=== PATIENT | male | born 1970 | race African-American/Black ===

== ENCOUNTER 2020-03-20 10:26 | Inpatient (IN) | payer OTHER ==
--- NOTE | 2020-03-20 12:48 | BHS.RME ---
Substance Use & Tx History - Substance Use History Alcohol Substance amount: 2- 6 packs, 1/2 pint Frequency of use: Daily Substance route: Oral Date of Last Use: 03/20/20 Heroin Substance amount: 4 bags Frequency of use: Daily Substance route: Inhalation (ex: sniffing or snorting) Date of Last Use: 03/20/20 Cocaine-Crack Substance amount: $10 Frequency of use: Daily Substance route: Smoking - Last Treatment Date of last treatment: 10/29/2017 Where was last treatment: Detox Physical/Psych/Mental Status - Behavior General Behavior: Increased activity (restlessness, agitation) Eye Contact: Normal Other Behaviors: Mannerisms - Cooperativeness Cooperativeness: Cooperative - Thinking Thought Processes: Tight, Logical Thought content: Future oriented - Physical Health Problems Is patient presently having any pain?: Yes (generalized) Does patient presently have any injuries (include location): No Does patient currently have a fever: No COWS - Scale Resting Pulse: 0= [place] 80 or Below Sweatin= Chills/Flushing Restless Observation: 1= Difficult to Sit Still Pupil Size: 1= Pupils >than Normal Bone or Joint Aches: 2= Severe Diffuse Aches Runny Nose/ Eye Tearin= Nasal Congestion GI Upset > 30mins: 2= Nausea/Diarrhea Tremor Observation: 2= Slight Tremor Visible Yawning Observation: 1= 1-2x During Session Anxiety or Irritability: 1=Feels Anxious/Irritable Goose Flesh Skin: 3=Piloerection COWS Score: 15 CIWA Nausea/Vomitin Muscle Tremors: 2 Anxiety: 2 Agitation: 2 Paroxysmal Sweats: 2 Orientation: 0-Oriented Tacttile Disturbances: 2-Mild Itch/Numbness/Burn Auditory Disturbances: 0-None Visual Disturbances: 0-None Headache: 2-Mild CIWA-Ar Total Score: 14
[2020-03-20 13:19] VITALS: BMI 41.3
--- NOTE | 2020-03-20 13:46 | HP ---
COWS - Scale Resting Pulse: 0= [place] 80 or Below Sweatin= Chills/Flushing Restless Observation: 1= Difficult to Sit Still Pupil Size: 1= Pupils >than Normal Bone or Joint Aches: 2= Severe Diffuse Aches Runny Nose/ Eye Tearin= Nasal Congestion GI Upset > 30mins: 2= Nausea/Diarrhea Tremor Observation: 2= Slight Tremor Visible Yawning Observation: 1= 1-2x During Session Anxiety or Irritability: 1=Feels Anxious/Irritable Goose Flesh Skin: 3=Piloerection COWS Score: 15 CIWA Score Nausea/Vomitin Muscle Tremors: 2 Anxiety: 2 Agitation: 2 Paroxysmal Sweats: 2 Orientation: 0-Oriented Tacttile Disturbances: 2-Mild Itch/Numbness/Burn Auditory Disturbances: 0-None Visual Disturbances: 0-None Headache: 2-Mild CIWA-Ar Total Score: 14 - Admission Criteria OASAS Guidelines: Admission for Medically Managed Detox: Requires at least one of the followin. CIWA greater than 12 2. Seizures within the past 24 hours 3. Delirium tremens within the past 24 hours 4. Hallucinations within the past 24 hours 5. Acute intervention needed for co occurring medical disorder 6. Acute intervention needed for co occurring psychiatric disorder 7. Severe withdrawal that cannot be handled at a lower level of care (continued vomiting, continued diarrhea, abnormal vital signs) requiring intravenous medication and/or fluids 8. Patient presents the following: CIWA greater than 12 Admission Criteria Met: Admission criteria met Admitting History and Physical - Smoking History Smoking history: Current every day smoker Have you smoked in the past 12 months: Yes Aproximately how many cigarettes per day: 3 - Alcohol/Substance Use Hx Alcohol Use: Yes Admission ROS S - HPI Chief Complaint: "I am here today because this is the beginning for me to stop using alcohol, cocaine and heroin. I need to get detox and treat my mental health, this is the beginning." Allergies/Adverse Reactions: Allergies Allergy/AdvReac Type Severity Reaction Status Date / Time Fish Containing Products Allergy Intermediate Swelling Verified 03/20/20 13:15 tomato [Tomato] Allergy Intermediate Itching Verified 03/20/20 13:15 tomatoes Allergy Intermediate Itching Uncoded 03/20/20 13:15 History of Present Illness: Patient is a 49 years old man who presents for alcohol and heroine detox. His last treatment was at [facility] 3 months ago, his last treated was at [facility] in 2018. Exam Limitations: No Limitations - Ebola screening Have you traveled outside of the country in the last 21 days: No Have you had contact with anyone from an Ebola affected area: No Have you been sick,other than usual withdrawal symptoms: No Do you have a fever: No - Review of Systems Constitutional: Chills, Weight Stable EENT: reports: Nose Congestion Respiratory: reports: No Symptoms reported Cardiac: reports: No Symptoms Reported GI: reports: Nausea, Abdominal cramping Musculoskeletal: reports: Back Pain (lower), Muscle Pain, Muscle Weakness Integumentary: reports: Pruritus, Sweating Neuro: reports: Headache, Numbness, Tremors Endocrine: reports: No Symptoms Reported Hematology: reports: No Symptoms Reported Psychiatric: reports: Anxious Other Systems: Reviewed and Negative Patient History - Patient Medical History Hx Anemia: No Hx Asthma: No Hx Chronic Obstructive Pulmonary Disease (COPD): No Hx Cancer: No Hx Cardiac Disorders: Yes (A-Fib) Hx Congestive Heart Failure: No Hx Hypertension: Yes Hx Hypercholesterolemia: No Hx Pacemaker: No HX Cerebrovascular Accident: No Hx Seizures: No Hx Dementia: No Hx Diabetes: Yes Hx Gastrointestinal Disorders: No Hx Liver Disease: No Hx Genitourinary Disorders: No Hx Sexually Transmitted Disorders: No Hx Renal Disease (ESRD): No Hx Thyroid Disease: No Hx Human Immunodeficiency Virus (HIV): No Hx Hepatitis C: No Hx Depression: No Hx Suicide Attempt: No Hx Bipolar Disorder: Yes Hx Schizophrenia: No - Patient Surgical History Past Surgical History: Yes Hx Neurologic Surgery: No Hx Cataract Extraction: No Hx Cardiac Surgery: Yes (Cardiac ablation for A-fib in 2018) Hx Lung Surgery: No Hx Breast Surgery: No Hx Breast Biopsy: No Hx Abdominal Surgery: No Hx Appendectomy: No Hx Cholecystectomy: No Hx Genitourinary Surgery: No Hx Section: No Hx Orthopedic Surgery: No Anesthesia Reaction: No - PPD History Previous Implant?: Yes Documented Results: Negative w/proof Implanted On Prior R Admission?: Yes Date: 11/29/12 Results: 0MM PPD to be Administered?: Yes - Smoking Cessation Smoking history: Current every day smoker Have you smoked in the past 12 months: Yes Aproximately how many cigarettes per day: 3 Hx Chewing Tobacco Use: No Initiated information on smoking cessation: Yes 'Breaking Loose' booklet given: 03/20/20 Admission Physical Exam [facility] - Vital Signs Vital Signs: Vital Signs - 24 hr 03/20/20 13:17 Temperature 97.4 F L Pulse Rate 82 Respiratory 18 Rate Blood Pressure 147/97 - Physical General Appearance: Yes: No Apparent Distress, Disheveled, Anxious HEENTM: Yes: Hearing grossly Normal, Normocephalic, Normal Voice Respiratory: Yes: Chest Non-Tender, Lungs Clear, Normal Breath Sounds, No Respiratory Distress, No Accessory Muscle Use Breast: Yes: Breast Exam Deferred Cardiology: Yes: Regular Rhythm, Regular Rate Abdominal: Yes: Normal Bowel Sounds, Non Tender, Soft Genitourinary: Yes: Within Normal Limits Back: Yes: Normal Inspection Extremities: Yes: Non-Tender, Tremors, Other (fungal feet) Neurological: Yes: 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, Fully Oriented, Alert, Normal Mood/Affect, Normal Response Integumentary: Yes: Dry Lymphatic: Yes: Within Normal Limits - Diagnostic (1) Cocaine dependence Current Visit: Yes Status: Active (2) Essential hypertension Current Visit: Yes Status: Active (3) Alcohol dependence with uncomplicated withdrawal Current Visit: Yes Status: Acute (4) Nicotine dependence Current Visit: Yes Status: Acute Qualifiers: Nicotine product type: cigarettes Substance use status: uncomplicated Qualified Code(s): F17.210 - Nicotine dependence, cigarettes, uncomplicated (5) Opioid dependence with withdrawal Current Visit: Yes Status: Acute Cleared for Admission [facility] - Detox or Rehab [facility] Level of Care: Medically Managed Detox Regimen/Protocol: Methadone/Librium Claeared for Rehab Admission: No Breathalyzer - Breathalyzer Breathalyzer: 0 Urine Drug Screen - Test Device Lot number: [id number] Expiration date: 09/23/76 - Control Is test valid?: Yes - Results Urine drug screen results: MARTINA-Cocaine, FEN-Fentanyl, MOP-Opiates Inpatient Rehab Admission - Rehab Decision to Admit Inpatient rehab admission?: No
[2020-03-20] MEDS ORDERED: MAGNESIUM CITRATE 300 ML BOTTLE PO PRN (13:53)
[2020-03-20] MEDS ORDERED: MENTHOL/PHENOL 1 EACH UD MM PRN (13:53)
[2020-03-20] MEDS ORDERED: IBUPROFEN 400 MG TABLET (FP) PO PRN (13:53)
[2020-03-20] MEDS ORDERED: MAGNESIUM HYDROX 2400MG/30ML ORAL SUSPENSION 30 ML CUP PO PRN (13:53)
[2020-03-20] MEDS ORDERED: chlordiazePOXIDE HCL 25 MG CAPSULE PO PRN (13:53)
[2020-03-20] MEDS ORDERED: METHADONE HCL 10 MG TABLET (FOR DETOX USE ONLY) PO ONE (13:53)
[2020-03-20] MEDS ORDERED: MAG HYDROX/AL HYDROX/SIMETH 30 ML UNIT-DOSE CUP PO PRN (13:53)
[2020-03-20] MEDS ORDERED: BISMUTH SUBSALICYLATE 524 MG/30 ML UD PO PRN (13:53)
[2020-03-20] MEDS ORDERED: NICOTINE POLACRILEX 2 MG GUM BUC PRN (13:53)
[2020-03-20] MEDS ORDERED: ACETAMINOPHEN 325 MG TABLET (FP) PO PRN ×2 (13:53)
[2020-03-20] MEDS ORDERED: METHOCARBAMOL 500 MG TABLET PO PRN (13:53)
[2020-03-20] MEDS: cloNIDine HCL 0.1 MG TABLET PO PRN (14:42)
[2020-03-20] MEDS: chlordiazePOXIDE HCL 25 MG CAPSULE PO SCH ×2 (17:41→22:09)
[2020-03-20] MEDS ORDERED: APIXABAN 5 MG TABLET ONE (21:26)
[2020-03-20] MEDS ORDERED: chlordiazePOXIDE HCL 25 MG CAPSULE ONE (21:26)
[2020-03-20] MEDS: APIXABAN 5 MG TABLET PO SCH (22:09)
[2020-03-20] MEDS: THIAMINE HCL 100 MG TABLET (FP) PO SCH (22:09)
[2020-03-20] MEDS: MELATONIN 5 MG TABLETS PO SCH (22:09)
[2020-03-20] MEDS: TOLNAFTATE 1% CREAM 15 GM TUBE TP SCH (22:09)
[2020-03-21] MEDS: chlordiazePOXIDE HCL 25 MG CAPSULE PO SCH ×4 (05:42→22:27)
--- NOTE | 2020-03-21 09:54 | CONSULT ---
[facility] Psychiatric Consult - Data Date of interview: 03/21/20 Admission source: Self-referred Identifying data: Mr March is a 49 years old single Black male, unemployed receiving SSI, domiciled living in supportive housing seeking detox treatment for alcohol, opioid and cocaine Substance Abuse History: Reports history of alcohol, heroin and cocaine use. Refer to addiction counselor's summary for further information Medical History: Significant for hypertension, type 2 diabetes mellitus and history of ablation for atrial fibrillation in 2018. Smokes 3 cigarettes daily Psychiatric History: Patient is known for 4 previous admissions to this facility. He reports that his first psychiatric contact occured years ago while in a [facility] residential program. He said that he was diagnosed with Schi zoaffective Disorder, bipolar type and started on psychotropic medications. Told proposal writer that due to frequent incarcerations and chronic homelessness, most of his psychiatric treatment has been provided while incarcerated. Reports that he received [facility] care at [facility], [facility] and [facility]. Reports that currently he is prescribed Abilify 20 mg/day, Depakote 500 mg/bid and Remreron 30 mg/hs by his primary care physician. Reports one previous psychiatric hospitalization at [facility]) but has no idea of the time. Denies previous suicidal attempt. At present, denies experiencing psychotic, manic or depressive symptoms, S/H ideations. However, reports sleeping poorly Physical/Sexual Abuse/Trauma History: Denies history of abuse as a child or DV relationship as an adult Mental Status Exam - Mental Status Exam Alert and Oriented to: Time, Place, Person Cognitive Function: Fair Patient Appearance: Disheveled Mood: Depressed Affect: Appropriate Patient Behavior: Cooperative Speech Pattern: Clear Voice Loudness: Normal Thought Process: Intact, Goal Oriented Hallucinations: Denies Suicidal Ideation: Denies Homicidal Ideation: Denies Insight/Judgement: Poor Sleep: Poorly Appetite: Good Muscle strength/Tone: Normal Gait/Station: Normal Psychiatric Findings - Problem List ([place] 1, 2,3) (1) Schizoaffective disorder, bipolar type Current Visit: Yes Status: Chronic (2) Substance-induced sleep disorder Current Visit: Yes Status: Acute (3) Alcohol dependence with uncomplicated withdrawal Current Visit: Yes Status: Acute (4) Cocaine dependence Current Visit: Yes Status: Active (5) Nicotine dependence Current Visit: Yes Status: Chronic Qualifiers: Nicotine product type: cigarettes Substance use status: uncomplicated Qualified Code(s): F17.210 - Nicotine dependence, cigarettes, uncomplicated (6) Essential hypertension Current Visit: Yes Status: Acute (7) Type 2 diabetes mellitus Current Visit: Yes Status: Chronic (8) Afib Current Visit: Yes Status: Chronic - Initial Treatment Plan Initial Treatment Plan: 1) Continue Abilify 20 mg po daily, Depakote 500 mg po BID and Remeron 30 mg po HS. 2) Continue inpatient detoxification
[2020-03-21] MEDS ORDERED: METHADONE (DETOX) 20 MG, METHADONE (DETOX) 5 MG PO ONE (10:00)
[2020-03-21] MEDS: APIXABAN 5 MG TABLET PO SCH ×2 (10:39→22:27)
[2020-03-21] MEDS: PRENATAL VITAMINS W/ FOLIC ACID TABLET (FP) PO SCH (10:39)
[2020-03-21] MEDS: LISINOPRIL 20 MG TABLET PO SCH (10:40)
[2020-03-21] MEDS: MIRTAZAPINE 30 MG TABLET PO SCH (10:40)
[2020-03-21] MEDS: DIVALPROEX SODIUM 500 MG TABLET E.C. PO SCH ×2 (10:46→22:27)
[2020-03-21] MEDS: TOLNAFTATE 1% CREAM 15 GM TUBE TP SCH ×2 (10:46→22:28)
[2020-03-21 10:56] LABS: HEMATOCRIT 39.6 % (35.4-49); HEMOGLOBIN 13.3 GM/dL (11.7-16.9); MCH 31.5 pg (25.7-33.7); MCHC 33.6 g/dl (32.0-35.9); MEAN CELL VOLUME 93.6 fl (80-96); MEAN PLT VOLUME 9.8 fl (7.5-11.1); PLATELET COUNT 198 K/MM3 (134-434); RBC 4.23 M/mm3 (4.00-5.60); RDW 16.2 % (11.9-15.9); WHITE BLOOD COUNT 6.2 K/mm3 (4.0-10.0)
[2020-03-21 11:07] LABS: ALBUMIN 3.3 g/dl (3.4-5.0); BLOOD UREA NITROGEN 12.9 mg/dL (7-18); CALCIUM 8.4 mg/dL (8.5-10.1)
[2020-03-21 11:10] LABS: BILIRUBIN,TOTAL 0.6 mg/dL (0.2-1); TOT PROT 6.1 g/dl (6.4-8.2)
[2020-03-21] MEDS: ARIPiprazole 10 MG TABLET PO SCH (12:12)
--- NOTE | 2020-03-21 17:04 | PN ---
S CIWA - CIWA Score Nausea/Vomitin-Mild Nausea/No Vomiting Muscle Tremors: 2 Anxiety: 2 Agitation: 2 Paroxysmal Sweats: 3 Orientation: 0-Oriented Tacttile Disturbances: 1-Very Mild Itch/Numbness Auditory Disturbances: 0-None Visual Disturbances: 0-None Headache: 1-Very Mild CIWA-Ar Total Score: 12 BHS COWS - Scale Resting Pulse: 0= [place] 80 or Below Sweatin= Chills/Flushing Restless Observation: 0= Sits Still Pupil Size: 0= Normal to Room Light Bone or Joint Aches: 2= Severe Diffuse Aches Runny Nose/ Eye Tearin= Runny Nose/Eyes GI Upset > 30mins: 2= Nausea/Diarrhea Tremor Observation of Outstretched Hands: 2= Slight Tremor Visible Yawning Observation: 0= None Anxiety or Irritability: 2=Irritable/Anxious Goose Flesh Skin: 0=Smooth Skin COWS Score: 11 S Progress Note (SOAP) Subjective: Anxious, diarrhea Objective: 03/21/20 17:05 Last Vital Signs Temp Pulse Resp BP Pulse Ox 97.8 F 74 18 144/107 H 99 03/21/20 13:01 03/21/20 13:01 03/21/20 13:01 03/21/20 13:01 03/21/20 13:01 Elevated b/p: has htn, on meds Laboratory Tests 03/20/20 03/20/20 03/20/20 13:41 15:20 16:44 WBC RBC Hgb Hct MCV MCH MCHC RDW Plt Count MPV Sodium Potassium Chloride Carbon Dioxide Anion Gap BUN Creatinine Est GFR (CKD-EPI)AfAm Est GFR (CKD-EPI)NonAf POC Glucometer 97 124 Random Glucose Calcium Total Bilirubin AST ALT Alkaline Phosphatase Total Protein Albumin Syphilis Serology COVID-19 (ANTOINE) Not detected HIV Ag/Ab Combo Qual 03/21/20 03/21/20 03/21/20 07:50 07:50 07:50 WBC 6.2 RBC 4.23 Hgb 13.3 Hct 39.6 MCV 93.6 MCH 31.5 MCHC 33.6 RDW 16.2 H Plt Count 198 MPV 9.8 Sodium Potassium Chloride Carbon Dioxide Anion Gap BUN Creatinine Est GFR (CKD-EPI)AfAm Est GFR (CKD-EPI)NonAf POC Glucometer Random Glucose Calcium Total Bilirubin AST ALT Alkaline Phosphatase Total Protein Albumin Syphilis Serology Non-reactive COVID-19 (ANTOINE) HIV Ag/Ab Combo Qual Negative 03/21/20 07:50 WBC RBC Hgb Hct MCV MCH MCHC RDW Plt Count MPV Sodium 142 Potassium 4.0 Chloride 109 H Carbon Dioxide 29 Anion Gap 4 L BUN 12.9 Creatinine 1.0 Est GFR (CKD-EPI)AfAm 101.26 Est GFR (CKD-EPI)NonAf 87.37 POC Glucometer Random Glucose 122 H Calcium 8.4 L Total Bilirubin 0.6 AST 19 ALT 21 Alkaline Phosphatase 73 Total Protein 6.1 L Albumin 3.3 L Syphilis Serology COVID-19 (ANTOINE) HIV Ag/Ab Combo Qual Labs reviewed: mild hyperglycemia noted Assessment: 03/21/20 17:06 Withdrawal sxs Noted with HTN and hyperglycemia Plan: Continue detox Encourage PO water intake HTN: continue antihypertensive, monitor b/p Hyperglycemia: r/t DM, not on meds, monitor FS
--- NOTE | 2020-03-21 21:41 | EKG ---
Test Reason : Blood Pressure : / mmHG Vent. Rate : 079 BPM Atrial Rate : 079 BPM P-R Int : 190 ms QRS Dur : 094 ms QT Int : 386 ms P-R-T Axes : 072 071 049 degrees QTc Int : 442 ms NORMAL SINUS RHYTHM POSSIBLE LEFT ATRIAL ENLARGEMENT BORDERLINE ECG NO PREVIOUS ECGS AVAILABLE Confirmed by ETHAN LEYVA, JENARO ([id number]) on 03/21/2020 9:41:20 PM Referred By: Confirmed By:JENARO LONG MD
[2020-03-21] MEDS: MELATONIN 5 MG TABLETS PO SCH (22:27)
[2020-03-21] MEDS: THIAMINE HCL 100 MG TABLET (FP) PO SCH (22:27)
[2020-03-22] MEDS: chlordiazePOXIDE HCL 25 MG CAPSULE PO SCH ×4 (05:48→22:30)
[2020-03-22] MEDS ORDERED: METHADONE HCL 10 MG TABLET (FOR DETOX USE ONLY) PO ONE (10:00)
[2020-03-22] MEDS: MIRTAZAPINE 30 MG TABLET PO SCH (10:27)
[2020-03-22] MEDS: APIXABAN 5 MG TABLET PO SCH ×2 (10:27→22:29)
[2020-03-22] MEDS: LISINOPRIL 20 MG TABLET PO SCH (10:27)
[2020-03-22] MEDS: PRENATAL VITAMINS W/ FOLIC ACID TABLET (FP) PO SCH (10:28)
[2020-03-22] MEDS: ARIPiprazole 10 MG TABLET PO SCH (10:28)
[2020-03-22] MEDS: DIVALPROEX SODIUM 500 MG TABLET E.C. PO SCH ×2 (10:28→22:30)
[2020-03-22] MEDS: TOLNAFTATE 1% CREAM 15 GM TUBE TP SCH ×2 (11:45→22:31)
--- NOTE | 2020-03-22 12:07 | PN ---
S CIWA - CIWA Score Nausea/Vomitin-No Nausea/No Vomiting Muscle Tremors: 2 Anxiety: 2 Agitation: 2 Paroxysmal Sweats: 2 Orientation: 0-Oriented Tacttile Disturbances: 0-None Auditory Disturbances: 0-None Visual Disturbances: 0-None Headache: 0-None Present CIWA-Ar Total Score: 8 BHS COWS - Scale Resting Pulse: 1= [place] 81-100 Sweatin= Chills/Flushing Restless Observation: 1= Difficult to Sit Still Pupil Size: 0= Normal to Room Light Bone or Joint Aches: 1= Mild Discomfort Runny Nose/ Eye Tearin= None GI Upset > 30mins: 0= None Tremor Observation of Outstretched Hands: 1= Tremor [place], Not Seen Yawning Observation: 1= 1-2x During Session Anxiety or Irritability: 1=Feels Anxious/Irritable Goose Flesh Skin: 0=Smooth Skin COWS Score: 7 BHS Progress Note (SOAP) Subjective: sweats shakes restless body aches interrupted sleep Objective: 03/22/20 12:04 Vital Signs Temperature 97.1 F L 03/22/20 08:37 Pulse Rate 84 03/22/20 08:37 Respiratory Rate 16 03/22/20 08:37 Blood Pressure 154/89 03/22/20 08:37 O2 Sat by Pulse Oximetry (%) 98 03/22/20 08:37 Laboratory Tests 03/20/20 03/20/20 03/20/20 13:41 15:20 16:44 WBC RBC Hgb Hct MCV MCH MCHC RDW Plt Count MPV Sodium Potassium Chloride Carbon Dioxide Anion Gap BUN Creatinine Est GFR (CKD-EPI)AfAm Est GFR (CKD-EPI)NonAf POC Glucometer 97 124 Random Glucose Calcium Total Bilirubin AST ALT Alkaline Phosphatase Total Protein Albumin Syphilis Serology COVID-19 (ANTOINE) Not detected HIV Ag/Ab Combo Qual 03/21/20 03/21/20 03/21/20 07:50 07:50 07:50 WBC 6.2 RBC 4.23 Hgb 13.3 Hct 39.6 MCV 93.6 MCH 31.5 MCHC 33.6 RDW 16.2 H Plt Count 198 MPV 9.8 Sodium Potassium Chloride Carbon Dioxide Anion Gap BUN Creatinine Est GFR (CKD-EPI)AfAm Est GFR (CKD-EPI)NonAf POC Glucometer Random Glucose Calcium Total Bilirubin AST ALT Alkaline Phosphatase Total Protein Albumin Syphilis Serology Non-reactive COVID-19 (ANTOINE) HIV Ag/Ab Combo Qual Negative 03/21/20 03/22/20 07:50 05:16 WBC RBC Hgb Hct MCV MCH MCHC RDW Plt Count MPV Sodium 142 Potassium 4.0 Chloride 109 H Carbon Dioxide 29 Anion Gap 4 L BUN 12.9 Creatinine 1.0 Est GFR (CKD-EPI)AfAm 101.26 Est GFR (CKD-EPI)NonAf 87.37 POC Glucometer 103 Random Glucose 122 H Calcium 8.4 L Total Bilirubin 0.6 AST 19 ALT 21 Alkaline Phosphatase 73 Total Protein 6.1 L Albumin 3.3 L Syphilis Serology COVID-19 (ANTOINE) HIV Ag/Ab Combo Qual labs noted aaox3 ambulating no acute distress Assessment: 03/22/20 12:05 withdrawal sx Plan: continue detox
[2020-03-22] MEDS: cloNIDine HCL 0.1 MG TABLET PO PRN (12:41)
[2020-03-22] MEDS ORDERED: HYDROCHLOROTHIAZIDE 12.5 MG CAPSULE (FP) PO SCH (14:15)
--- NOTE | 2020-03-22 14:28 | PN ---
K[facility] Progress Note Note: spoke with pt pharmacist at [facility] and she confirmed that pt is currently on lisinopril 20mg daily and metoprolol succinate 100mg qdaily.
[2020-03-22] MEDS: THIAMINE HCL 100 MG TABLET (FP) PO SCH (22:31)
[2020-03-22] MEDS: MELATONIN 5 MG TABLETS PO SCH (22:32)
[2020-03-23] MEDS ORDERED: chlordiazePOXIDE HCL 10 MG CAPSULE PO PRN
[2020-03-23] MEDS: chlordiazePOXIDE HCL 10 MG CAPSULE PO SCH ×4 (06:26→22:11)
[2020-03-23] MEDS ORDERED: METHADONE HCL 5 MG TABLET (FOR DETOX USE ONLY) ONE (08:50)
[2020-03-23] MEDS ORDERED: METHADONE HCL 10 MG TABLET (FOR DETOX USE ONLY) ONE (08:51)
[2020-03-23] MEDS ORDERED: METHADONE (DETOX) 10 MG, METHADONE (DETOX) 5 MG PO ONE (10:00)
[2020-03-23] MEDS: APIXABAN 5 MG TABLET PO SCH ×2 (10:18→22:11)
[2020-03-23] MEDS: ARIPiprazole 10 MG TABLET PO SCH (10:18)
[2020-03-23] MEDS: DIVALPROEX SODIUM 500 MG TABLET E.C. PO SCH ×2 (10:18→22:11)
[2020-03-23] MEDS: PRENATAL VITAMINS W/ FOLIC ACID TABLET (FP) PO SCH (10:18)
[2020-03-23] MEDS: LISINOPRIL 20 MG TABLET PO SCH (10:18)
[2020-03-23] MEDS: TOLNAFTATE 1% CREAM 15 GM TUBE TP SCH ×2 (10:19→22:11)
[2020-03-23] MEDS: MIRTAZAPINE 30 MG TABLET PO SCH (10:19)
--- NOTE | 2020-03-23 11:31 | PN ---
S CIWA - CIWA Score Nausea/Vomitin-No Nausea/No Vomiting Muscle Tremors: 2 Anxiety: 1-Mildly Anxious Agitation: 2 Paroxysmal Sweats: 1-Minimal Palms Moist Orientation: 0-Oriented Tacttile Disturbances: 0-None Auditory Disturbances: 0-None Visual Disturbances: 0-None Headache: 0-None Present CIWA-Ar Total Score: 6 BHS COWS - Scale Resting Pulse: 0= [place] 80 or Below Sweatin= No chills or Flushing Restless Observation: 0= Sits Still Pupil Size: 0= Normal to Room Light Bone or Joint Aches: 1= Mild Discomfort Runny Nose/ Eye Tearin= None GI Upset > 30mins: 0= None Tremor Observation of Outstretched Hands: 1= Tremor [place], Not Seen Yawning Observation: 1= 1-2x During Session Anxiety or Irritability: 1=Feels Anxious/Irritable Goose Flesh Skin: 0=Smooth Skin COWS Score: 4 [facility] Progress Note (SOAP) Subjective: little sweats feeling better Objective: 03/23/20 11:31 Vital Signs Temperature 98.1 F 03/23/20 08:50 Pulse Rate 80 03/23/20 08:50 Respiratory Rate 16 03/23/20 08:50 Blood Pressure 124/95 03/23/20 08:50 O2 Sat by Pulse Oximetry (%) 100 03/23/20 08:50 Laboratory Tests 03/20/20 03/20/20 03/20/20 13:41 15:20 16:44 WBC RBC Hgb Hct MCV MCH MCHC RDW Plt Count MPV Sodium Potassium Chloride Carbon Dioxide Anion Gap BUN Creatinine Est GFR (CKD-EPI)AfAm Est GFR (CKD-EPI)NonAf POC Glucometer 97 124 Random Glucose Calcium Total Bilirubin AST ALT Alkaline Phosphatase Total Protein Albumin Syphilis Serology COVID-19 (ANTOINE) Not detected HIV Ag/Ab Combo Qual 03/21/20 03/21/20 03/21/20 07:50 07:50 07:50 WBC 6.2 RBC 4.23 Hgb 13.3 Hct 39.6 MCV 93.6 MCH 31.5 MCHC 33.6 RDW 16.2 H Plt Count 198 MPV 9.8 Sodium Potassium Chloride Carbon Dioxide Anion Gap BUN Creatinine Est GFR (CKD-EPI)AfAm Est GFR (CKD-EPI)NonAf POC Glucometer Random Glucose Calcium Total Bilirubin AST ALT Alkaline Phosphatase Total Protein Albumin Syphilis Serology Non-reactive COVID-19 (ANTOINE) HIV Ag/Ab Combo Qual Negative 03/21/20 03/22/20 03/23/20 07:50 05:16 06:29 WBC RBC Hgb Hct MCV MCH MCHC RDW Plt Count MPV Sodium 142 Potassium 4.0 Chloride 109 H Carbon Dioxide 29 Anion Gap 4 L BUN 12.9 Creatinine 1.0 Est GFR (CKD-EPI)AfAm 101.26 Est GFR (CKD-EPI)NonAf 87.37 POC Glucometer 103 87 Random Glucose 122 H Calcium 8.4 L Total Bilirubin 0.6 AST 19 ALT 21 Alkaline Phosphatase 73 Total Protein 6.1 L Albumin 3.3 L Syphilis Serology COVID-19 (ANTOINE) HIV Ag/Ab Combo Qual labs noted aaox3 ambulating no acute distress Assessment: 03/23/20 11:31 withdrawals Plan: continue detox
[2020-03-23] MEDS: MELATONIN 5 MG TABLETS PO SCH (22:11)
[2020-03-23] MEDS: THIAMINE HCL 100 MG TABLET (FP) PO SCH (22:11)
[2020-03-24] MEDS: chlordiazePOXIDE HCL 10 MG CAPSULE PO SCH ×2 (06:06→17:27)
[2020-03-24] MEDS ORDERED: METHADONE HCL 10 MG TABLET (FOR DETOX USE ONLY) PO ONE (10:00)
[2020-03-24] MEDS: DIVALPROEX SODIUM 500 MG TABLET E.C. PO SCH ×2 (10:19→22:16)
[2020-03-24] MEDS: ARIPiprazole 10 MG TABLET PO SCH (10:20)
[2020-03-24] MEDS: LISINOPRIL 20 MG TABLET PO SCH (10:20)
[2020-03-24] MEDS: MIRTAZAPINE 30 MG TABLET PO SCH (10:20)
[2020-03-24] MEDS: PRENATAL VITAMINS W/ FOLIC ACID TABLET (FP) PO SCH (10:20)
[2020-03-24] MEDS: TOLNAFTATE 1% CREAM 15 GM TUBE TP SCH ×2 (10:20→22:17)
[2020-03-24] MEDS: APIXABAN 5 MG TABLET PO SCH ×2 (10:20→22:16)
--- NOTE | 2020-03-24 13:17 | PN ---
[facility] CIWA - CIWA Score Nausea/Vomitin-No Nausea/No Vomiting Muscle Tremors: None Anxiety: 1-Mildly Anxious Agitation: 1-Slight > Activity Paroxysmal Sweats: No Perspiration Orientation: 0-Oriented Tacttile Disturbances: 0-None Auditory Disturbances: 0-None Visual Disturbances: 0-None Headache: 0-None Present CIWA-Ar Total Score: 2 BHS COWS - Scale Resting Pulse: 0= [place] 80 or Below Sweatin= No chills or Flushing Restless Observation: 0= Sits Still Pupil Size: 0= Normal to Room Light Bone or Joint Aches: 1= Mild Discomfort Runny Nose/ Eye Tearin= None GI Upset > 30mins: 0= None Tremor Observation of Outstretched Hands: 1= Tremor [place], Not Seen Yawning Observation: 0= None Anxiety or Irritability: 1=Feels Anxious/Irritable Goose Flesh Skin: 0=Smooth Skin COWS Score: 3 S Progress Note (SOAP) Subjective: anxiety Objective: 03/24/20 13:16 Vital Signs Temperature 97.7 F 03/24/20 09:11 Pulse Rate 78 03/24/20 09:11 Respiratory Rate 20 03/24/20 09:11 Blood Pressure 131/88 03/24/20 09:11 O2 Sat by Pulse Oximetry (%) 99 03/24/20 09:11 aaox3 ambulating no acute distress Assessment: 03/24/20 13:16 withdrawals Plan: continue detox d/c in am
[2020-03-24] MEDS ORDERED: MASKS NR ONE (21:25)
[2020-03-24] MEDS: MELATONIN 5 MG TABLETS PO SCH (22:16)
[2020-03-24] MEDS: THIAMINE HCL 100 MG TABLET (FP) PO SCH (22:17)
[2020-03-25] MEDS ORDERED: chlordiazePOXIDE HCL 10 MG CAPSULE PO ONE (05:00)
[2020-03-25] MEDS ORDERED: METHADONE HCL 5 MG TABLET (FOR DETOX USE ONLY) PO ONE (06:00)
--- NOTE | 2020-03-25 08:48 | DS ---
[facility] Detox Discharge Summary Admission Date: 03/20/20 Discharge Date: 03/25/20 - History Present History: Alcohol Dependence, Cocaine Dependence, Opioid Dependence - Physical Exam Results Vital Signs: Vital Signs Temperature 97.5 F L 03/24/20 20:58 Pulse Rate 69 03/24/20 20:58 Respiratory Rate 18 03/24/20 20:58 Blood Pressure 121/82 03/24/20 20:58 O2 Sat by Pulse Oximetry (%) 100 03/24/20 20:58 Pertinent Admission Physical Exam Findings: Vital Signs Temperature 97.5 F L 03/24/20 20:58 Pulse Rate 69 03/24/20 20:58 Respiratory Rate 18 03/24/20 20:58 Blood Pressure 121/82 03/24/20 20:58 O2 Sat by Pulse Oximetry (%) 100 03/24/20 20:58 Laboratory Tests 03/20/20 03/20/20 03/20/20 13:41 15:20 16:44 WBC RBC Hgb Hct MCV MCH MCHC RDW Plt Count MPV Sodium Potassium Chloride Carbon Dioxide Anion Gap BUN Creatinine Est GFR (CKD-EPI)AfAm Est GFR (CKD-EPI)NonAf POC Glucometer 97 124 Random Glucose Calcium Total Bilirubin AST ALT Alkaline Phosphatase Total Protein Albumin Syphilis Serology COVID-19 (ANTOINE) Not detected HIV Ag/Ab Combo Qual 03/21/20 03/21/20 03/21/20 07:50 07:50 07:50 WBC 6.2 RBC 4.23 Hgb 13.3 Hct 39.6 MCV 93.6 MCH 31.5 MCHC 33.6 RDW 16.2 H Plt Count 198 MPV 9.8 Sodium Potassium Chloride Carbon Dioxide Anion Gap BUN Creatinine Est GFR (CKD-EPI)AfAm Est GFR (CKD-EPI)NonAf POC Glucometer Random Glucose Calcium Total Bilirubin AST ALT Alkaline Phosphatase Total Protein Albumin Syphilis Serology Non-reactive COVID-19 (ANTOINE) HIV Ag/Ab Combo Qual Negative 03/21/20 03/22/20 03/23/20 07:50 05:16 06:29 WBC RBC Hgb Hct MCV MCH MCHC RDW Plt Count MPV Sodium 142 Potassium 4.0 Chloride 109 H Carbon Dioxide 29 Anion Gap 4 L BUN 12.9 Creatinine 1.0 Est GFR (CKD-EPI)AfAm 101.26 Est GFR (CKD-EPI)NonAf 87.37 POC Glucometer 103 87 Random Glucose 122 H Calcium 8.4 L Total Bilirubin 0.6 AST 19 ALT 21 Alkaline Phosphatase 73 Total Protein 6.1 L Albumin 3.3 L Syphilis Serology COVID-19 (ANTOINE) HIV Ag/Ab Combo Qual 03/24/20 03/24/20 03/25/20 06:05 16:40 06:38 WBC RBC Hgb Hct MCV MCH MCHC RDW Plt Count MPV Sodium Potassium Chloride Carbon Dioxide Anion Gap BUN Creatinine Est GFR (CKD-EPI)AfAm Est GFR (CKD-EPI)NonAf POC Glucometer 83 100 101 Random Glucose Calcium Total Bilirubin AST ALT Alkaline Phosphatase Total Protein Albumin Syphilis Serology COVID-19 (ANTOINE) HIV Ag/Ab Combo Qual labs noted aaox3 ambulating no acute distress lungs CTA - Treatment Hospital Course: Detox Protocol Followed, Detoxed Safely, Responded well, Discharged Condition Good, Rehab Referral Accepted - Medication Discharge Medications: Ambulatory Orders Lisinopril 20 mg PO DAILY 10/29/17 Mirtazapine [Remeron -] 30 mg PO DAILY 10/29/17 Apixaban [Eliquis -] 5 mg PO BID 03/20/20 Aripiprazole [Abilify -] 20 mg PO DAILY 03/20/20 Divalproex [Depakote -] 500 mg PO BID 03/20/20 - Diagnosis (1) Cocaine dependence Current Visit: Yes Status: Acute (2) Alcohol dependence with uncomplicated withdrawal Current Visit: Yes Status: Chronic (3) Essential hypertension Current Visit: Yes Status: Acute (4) Opioid dependence with withdrawal Current Visit: Yes Status: Acute (5) Substance-induced sleep disorder Current Visit: Yes Status: Acute (6) Afib Current Visit: Yes Status: Chronic (7) Nicotine dependence Current Visit: Yes Status: Chronic Qualifiers: Nicotine product type: cigarettes Substance use status: uncomplicated Qualified Code(s): F17.210 - Nicotine dependence, cigarettes, uncomplicated (8) Schizoaffective disorder, bipolar type Current Visit: Yes Status: Chronic (9) Type 2 diabetes mellitus Current Visit: Yes Status: Chronic (10) Alcohol dependence Current Visit: No Status: Active (11) Seizure Current Visit: No Status: Active (12) bipolar disorder Current Visit: No Status: Active (13) syncope alcohol related Current Visit: No Status: Active - AMA Did Patient Leave Against Medical Advice: No
[2020-03-25] MEDS: ARIPiprazole 10 MG TABLET PO SCH (10:11)
[2020-03-25] MEDS: MIRTAZAPINE 30 MG TABLET PO SCH (10:11)
[2020-03-25] MEDS: LISINOPRIL 20 MG TABLET PO SCH (10:11)
[2020-03-25] MEDS: APIXABAN 5 MG TABLET PO SCH (10:11)
[2020-03-25] MEDS: PRENATAL VITAMINS W/ FOLIC ACID TABLET (FP) PO SCH (10:12)
[2020-03-25] MEDS: TOLNAFTATE 1% CREAM 15 GM TUBE TP SCH (10:12)
[2020-03-25] MEDS: DIVALPROEX SODIUM 500 MG TABLET E.C. PO SCH (10:12)
[2020-03-25 11:16] VITALS: BP 131/90; PULSE 70; TEMP 98.6
== END 2020-03-25 12:00 | disposition other institution (70) | DRG 773 ==
LOC: YASAS 10:26 → Y6N 13:43
PROVIDERS: ADMIT Allergy & Immunology; ATTEND Allergy & Immunology
PROC: HZ2ZZZZ Detoxification Services for Substance Abuse Treatment (ICD-10-PCS; principal; 2020-03-20)
DX: F10.230 Alcohol dependence with withdrawal, uncomplicated (principal); F11.23 Opioid dependence with withdrawal; F14.20 Cocaine dependence, uncomplicated; F17.210 Nicotine dependence, cigarettes, uncomplicated; F19.282 Other psychoactive substance dependence with psychoactive substance-induced sleep disorder; F25.0 Schizoaffective disorder, bipolar type; F31.9 Bipolar disorder, unspecified; I48.20 Chronic atrial fibrillation, unspecified; Z79.01 Long term (current) use of anticoagulants; E11.65 Type 2 diabetes mellitus with hyperglycemia; G40.909 Epilepsy, unspecified, not intractable, without status epilepticus; Z91.018 Allergy to other foods; Z91.013 Allergy to seafood
CPT/HCPCS: 36415; 80053; 82962; 85027; 86780; 87389; 93005; 93010; J0735; U0003

== ENCOUNTER 2020-03-25 12:40 | Inpatient (IN) | payer OTHER ==
--- NOTE | 2020-03-25 12:27 | HP ---
[facility] Rehab Assess/Revision - Admission History Ad[facility] to Rehab from[facility] - Findings Detox History & Physical reviewed: Yes Concur with findings: Yes Inpatient Rehab Admission - Rehab Decision to Admit Inpatient rehab admission?: Yes - Initial Determination Are CD services needed?: Yes Free of communicable disease: Yes Not in need of hospitalization: Yes - Rehab Admission Criteria Previous failed treatment: Yes Poor recovery environment: Yes Comorbidities: Yes Lacks judgement: Yes Patient is meeting Inpatient Rehab admission criteria:: Yes
[2020-03-25] MEDS ORDERED: MAG HYDROX/AL HYDROX/SIMETH 30 ML UNIT-DOSE CUP PO PRN (14:46)
[2020-03-25] MEDS ORDERED: LOPERAMIDE HCL 2 MG CAPSULE PO PRN (14:46)
[2020-03-25] MEDS ORDERED: MAGNESIUM HYDROX 2400MG/30ML ORAL SUSPENSION 30 ML CUP PO PRN (14:46)
[2020-03-25] MEDS ORDERED: MENTHOL/PHENOL 1 EACH UD MM PRN (14:46)
[2020-03-25] MEDS ORDERED: MAGNESIUM CITRATE 300 ML BOTTLE PO PRN (14:46)
[2020-03-25] MEDS ORDERED: IBUPROFEN 400 MG TABLET (FP) PO PRN (14:46)
[2020-03-25] MEDS ORDERED: P-EPHED 60MG/TRIPROLIDI 2.5MG TABLET PO PRN (14:46)
[2020-03-25] MEDS ORDERED: NICOTINE POLACRILEX 2 MG GUM BUC PRN (14:46)
[2020-03-25] MEDS ORDERED: ACETAMINOPHEN 325 MG TABLET (FP) PO PRN (14:46)
[2020-03-25] MEDS ORDERED: guaiFENesin 200 MG/10 ML 10 ML UNIT-DOSE CUPS PO PRN (14:46)
--- NOTE | 2020-03-25 14:57 | PN ---
[facility] Progress Note Note: Pt is a 49 y/o male with a hx of CATARINO-Heroin,alcohol,cocaine admitted to rehab from [address] [place] [address]. PMHx: DM,HTN,A-Fib w/ cardiac ablation(2017), Seizure hx on 2011 admission here Psych Hx:Bipolar Disorder, Schizoaffective disorder Vital Signs 03/25/20 13:00 Temperature 97.0 F L Pulse Rate 68 Respiratory 18 Rate Blood Pressure 124/94 O2 Sat by Pulse 97 Oximetry (%) Alert o x 3, nad seen in bed and communicated coherently extremities:no edema, skin intact s/p detox CATARINO Increase po fluids maintain safety
[2020-03-25] MEDS ORDERED: MIRTAZAPINE 15 MG TABLET (FP) ONE (20:32)
[2020-03-25] MEDS: THIAMINE HCL 100 MG TABLET (FP) PO SCH (21:53)
[2020-03-25] MEDS: MIRTAZAPINE 30 MG TABLET PO SCH (21:53)
[2020-03-25] MEDS: DIVALPROEX SODIUM 500 MG TABLET E.C. PO SCH (21:53)
[2020-03-25] MEDS: MELATONIN 5 MG TABLETS PO SCH (21:53)
[2020-03-25] MEDS: APIXABAN 5 MG TABLET PO SCH (21:53)
[2020-03-26] MEDS: NICOTINE 7 MG/24 HOURS TOPICAL PATCH TD SCH (10:08)
[2020-03-26] MEDS: DIVALPROEX SODIUM 500 MG TABLET E.C. PO SCH ×2 (10:08→21:29)
[2020-03-26] MEDS: LISINOPRIL 20 MG TABLET PO SCH (10:08)
[2020-03-26] MEDS: PRENATAL VITAMINS W/ FOLIC ACID TABLET (FP) PO SCH (10:08)
[2020-03-26] MEDS: APIXABAN 5 MG TABLET PO SCH ×2 (11:34→21:29)
[2020-03-26] MEDS: ARIPiprazole 10 MG TABLET PO SCH (11:34)
[2020-03-26] MEDS ORDERED: MIRTAZAPINE 15 MG TABLET (FP) ONE (19:56)
[2020-03-26] MEDS: MIRTAZAPINE 30 MG TABLET PO SCH (21:29)
[2020-03-26] MEDS: MELATONIN 5 MG TABLETS PO SCH (21:29)
[2020-03-26] MEDS: hydrOXYzine PAMOATE 25 MG CAPSULE (FP) PO PRN (21:29)
[2020-03-26] MEDS: THIAMINE HCL 100 MG TABLET (FP) PO SCH (21:29)
[2020-03-27] MEDS: PRENATAL VITAMINS W/ FOLIC ACID TABLET (FP) PO SCH (09:47)
[2020-03-27] MEDS: LISINOPRIL 20 MG TABLET PO SCH (09:48)
[2020-03-27] MEDS: DIVALPROEX SODIUM 500 MG TABLET E.C. PO SCH ×2 (09:48→21:25)
[2020-03-27] MEDS: ARIPiprazole 10 MG TABLET PO SCH (09:49)
[2020-03-27] MEDS: APIXABAN 5 MG TABLET PO SCH ×2 (09:49→21:25)
[2020-03-27] MEDS: NICOTINE 7 MG/24 HOURS TOPICAL PATCH TD SCH (09:50)
[2020-03-27] MEDS ORDERED: MASKS NR ONE (14:18)
[2020-03-27] MEDS ORDERED: MIRTAZAPINE 15 MG TABLET (FP) ONE (19:21)
[2020-03-27] MEDS: MIRTAZAPINE 30 MG TABLET PO SCH (21:25)
[2020-03-27] MEDS: hydrOXYzine PAMOATE 25 MG CAPSULE (FP) PO PRN (21:25)
[2020-03-27] MEDS: THIAMINE HCL 100 MG TABLET (FP) PO SCH (21:26)
[2020-03-27] MEDS: MELATONIN 5 MG TABLETS PO SCH (21:26)
[2020-03-28 06:58] VITALS: TEMP 97.7
[2020-03-28] MEDS: ARIPiprazole 10 MG TABLET PO SCH (10:13)
[2020-03-28] MEDS: APIXABAN 5 MG TABLET PO SCH ×2 (10:13→21:28)
[2020-03-28] MEDS: LISINOPRIL 20 MG TABLET PO SCH (10:13)
[2020-03-28] MEDS: PRENATAL VITAMINS W/ FOLIC ACID TABLET (FP) PO SCH (10:13)
[2020-03-28] MEDS: NICOTINE 7 MG/24 HOURS TOPICAL PATCH TD SCH (10:14)
[2020-03-28] MEDS: DIVALPROEX SODIUM 500 MG TABLET E.C. PO SCH ×2 (10:15→21:28)
[2020-03-28] MEDS ORDERED: MIRTAZAPINE 15 MG TABLET (FP) ONE (18:58)
[2020-03-28] MEDS: THIAMINE HCL 100 MG TABLET (FP) PO SCH (21:28)
[2020-03-28] MEDS: hydrOXYzine PAMOATE 25 MG CAPSULE (FP) PO PRN (21:28)
[2020-03-28] MEDS: MELATONIN 5 MG TABLETS PO SCH (21:28)
[2020-03-28] MEDS: MIRTAZAPINE 30 MG TABLET PO SCH (21:28)
[2020-03-29 07:32] VITALS: BP 151/101; PULSE 65
[2020-03-29] MEDS: ARIPiprazole 10 MG TABLET PO SCH (09:18)
[2020-03-29] MEDS: LISINOPRIL 20 MG TABLET PO SCH (09:18)
[2020-03-29] MEDS: APIXABAN 5 MG TABLET PO SCH (09:18)
[2020-03-29] MEDS: DIVALPROEX SODIUM 500 MG TABLET E.C. PO SCH (09:18)
[2020-03-29] MEDS: PRENATAL VITAMINS W/ FOLIC ACID TABLET (FP) PO SCH (09:20)
[2020-03-29] MEDS: NICOTINE 7 MG/24 HOURS TOPICAL PATCH TD SCH (09:20)
--- NOTE | 2020-03-29 14:37 | DS ---
[facility] Rehab Discharge Summary - [facility] Rehab Discharge Summary Admission Date: 03/25/20 Discharge Date: 03/29/20 - History Present History: Alcohol dependence, Cocaine dependence Pertinent Past History: HTN Type 2 DM Seizure disorder A-Fib Hx cardiac ablation Schizoaffective Disorder - Discharge Physical Exam Vital Signs: Vital Signs Temperature 97.7 F 03/29/20 07:31 Pulse Rate 65 03/29/20 07:31 Respiratory Rate 18 03/29/20 07:31 Blood Pressure 151/101 H 03/29/20 07:31 O2 Sat by Pulse Oximetry (%) 97 03/29/20 07:31 - Treatment Discharge Condition: Discharge condition good, Rehabilitated safely, Outpatient referral accepted Hospital Course: Pt is a 49 y/o male admitted to rehab and requesting early discharge today. Pt will follow up with CD aftercare as recommended. CD aftercare referral accepted to [facility]. - Medication Discharge Medications: Ambulatory Orders Lisinopril 20 mg PO DAILY 10/29/17 Mirtazapine [Remeron -] 30 mg PO DAILY 10/29/17 Apixaban [Eliquis -] 5 mg PO BID 03/20/20 Aripiprazole [Abilify -] 20 mg PO DAILY 03/20/20 Divalproex [Depakote -] 500 mg PO BID 03/20/20 Metoprolol Succinate [Toprol Xl] 100 mg PO DAILY 03/25/20 - Medication-Assisted Treatment (MAT) Medication-Assisted Treatment (MAT): No - Discharge Instructions Diet, activity, other medical instructions: Diet:KYLEE/NCS Activity: oob ad ange Other medical instructions:Follow up with PCP, DR. Shashi Miranda for medical management of Comorbid conditions as needed. - Diagnosis (1) Alcohol dependence Status: Acute (2) Cocaine dependence Status: Chronic (3) Essential hypertension Status: Chronic (4) Afib Status: Chronic Qualifiers: Atrial fibrillation type: unspecified Qualified Code(s): I48.91 - Unspecified atrial fibrillation (5) Nicotine dependence Status: Chronic Qualifiers: Nicotine product type: cigarettes Substance use status: uncomplicated Qualified Code(s): F17.210 - Nicotine dependence, cigarettes, uncomplicated (6) Type 2 diabetes mellitus Status: Chronic - Follow-up Referral Minutes to complete discharge: 30 - AMA Did Patient Leave Against Medical Advice: No Additional Comments: Pt
== END 2020-03-29 09:35 | disposition home or self-care (01) | DRG 772 ==
LOC: YASAS 12:40 → Y5N 12:41
PROVIDERS: ADMIT Allergy & Immunology; ATTEND Allergy & Immunology
PROC: HZ42ZZZ Group Counseling for Substance Abuse Treatment, Cognitive-Behavioral (ICD-10-PCS; principal; 2020-03-25)
DX: F10.20 Alcohol dependence, uncomplicated (principal); F11.20 Opioid dependence, uncomplicated; F14.20 Cocaine dependence, uncomplicated; F17.210 Nicotine dependence, cigarettes, uncomplicated; F25.9 Schizoaffective disorder, unspecified; F31.9 Bipolar disorder, unspecified; E11.9 Type 2 diabetes mellitus without complications; I10 Essential (primary) hypertension; I48.91 Unspecified atrial fibrillation; Z79.01 Long term (current) use of anticoagulants; Z91.013 Allergy to seafood; Z91.018 Allergy to other foods; Z98.890 Other specified postprocedural states
CPT/HCPCS: 82962

== ENCOUNTER 2020-08-07 09:29 | Inpatient (IN) | payer OTHER ==
[2020-08-07 10:21] VITALS: BMI 39.6
[2020-08-07] MEDS ORDERED: MAGNESIUM CITRATE 300 ML BOTTLE PO PRN (11:08)
[2020-08-07] MEDS ORDERED: IBUPROFEN 400 MG TABLET (FP) PO PRN (11:08)
[2020-08-07] MEDS ORDERED: BISMUTH SUBSALICYLATE 524 MG/30 ML UD PO PRN (11:08)
[2020-08-07] MEDS ORDERED: MENTHOL/PHENOL 1 EACH UD MM PRN (11:08)
[2020-08-07] MEDS ORDERED: ONDANSETRON *ODT* 4 MG TABLET SL PRN (11:08)
[2020-08-07] MEDS ORDERED: MAGNESIUM HYDROX 2400MG/30ML ORAL SUSPENSION 30 ML CUP PO PRN (11:08)
[2020-08-07] MEDS ORDERED: ACETAMINOPHEN 325 MG TABLET (FP) PO PRN ×2 (11:08)
[2020-08-07] MEDS ORDERED: MAG HYDROX/AL HYDROX/SIMETH 30 ML UNIT-DOSE CUP PO PRN (11:08)
[2020-08-07] MEDS ORDERED: chlordiazePOXIDE HCL 25 MG CAPSULE PO PRN (11:08)
[2020-08-07] MEDS ORDERED: METHOCARBAMOL 500 MG TABLET PO PRN (11:08)
[2020-08-07] MEDS: EMTRICITABINE/TENOFOV ALAFENAM (DESCOVY) TABLET PO SCH (11:49)
[2020-08-07] MEDS: LISINOPRIL 20 MG TABLET PO SCH (11:50)
[2020-08-07] MEDS: amLODIPine BESYLATE 10 MG TABLET (FP) PO SCH (11:50)
[2020-08-07] MEDS: hydrOXYzine PAMOATE 25 MG CAPSULE (FP) PO SCH ×3 (13:07→22:30)
[2020-08-07] MEDS: chlordiazePOXIDE HCL 25 MG CAPSULE PO SCH ×2 (18:25→22:31)
[2020-08-07] MEDS: THIAMINE HCL 100 MG TABLET (FP) PO SCH (22:30)
[2020-08-07] MEDS: DIVALPROEX SODIUM 500 MG TABLET E.C. PO SCH (22:30)
[2020-08-07] MEDS: MELATONIN 5 MG TABLETS PO SCH (22:30)
[2020-08-08] MEDS: hydrOXYzine PAMOATE 25 MG CAPSULE (FP) PO SCH ×5 (06:12→22:27)
[2020-08-08] MEDS: chlordiazePOXIDE HCL 25 MG CAPSULE PO SCH ×4 (06:12→22:27)
[2020-08-08 09:54] LABS: POTASSIUM 3.7 mmol/L (3.5-5.1)
[2020-08-08 09:59] LABS: CALCIUM 8.7 mg/dL (8.5-10.1)
[2020-08-08 10:00] LABS: ALBUMIN 3.2 g/dl (3.4-5.0); BLOOD UREA NITROGEN 7.6 mg/dL (7-18)
[2020-08-08] MEDS ORDERED: PRENATAL VITAMINS W/ FOLIC ACID TABLET (FP) PO SCH (10:00)
[2020-08-08 10:01] LABS: HEMATOCRIT 42.5 % (35.4-49); HEMOGLOBIN 14.5 GM/dL (11.7-16.9); MCH 32.8 pg (25.7-33.7); MCHC 34.2 g/dl (32.0-35.9); MEAN CELL VOLUME 95.9 fl (80-96); MEAN PLT VOLUME 10.2 fl (7.5-11.1); PLATELET COUNT 173 K/MM3 (134-434); RBC 4.43 M/mm3 (4.00-5.60); RDW 15.4 % (11.9-15.9); WHITE BLOOD COUNT 4.3 K/mm3 (4.0-10.0)
[2020-08-08 10:04] LABS: BILIRUBIN,TOTAL 1.1 mg/dL (0.2-1); TOT PROT 6.2 g/dl (6.4-8.2)
[2020-08-08] MEDS: EMTRICITABINE/TENOFOV ALAFENAM (DESCOVY) TABLET PO SCH (10:35)
[2020-08-08] MEDS: DIVALPROEX SODIUM 500 MG TABLET E.C. PO SCH ×2 (10:35→22:27)
[2020-08-08] MEDS: amLODIPine BESYLATE 10 MG TABLET (FP) PO SCH (10:44)
[2020-08-08] MEDS: LISINOPRIL 20 MG TABLET PO SCH (10:45)
[2020-08-08 10:54] LABS: HIV INTERPRETATION NEGATIVE (NEGATIVE)
[2020-08-08] MEDS: THIAMINE HCL 100 MG TABLET (FP) PO SCH (22:27)
[2020-08-08] MEDS: MELATONIN 5 MG TABLETS PO SCH (22:27)
[2020-08-09] MEDS ORDERED: chlordiazePOXIDE HCL 25 MG CAPSULE PO SCH (05:00)
[2020-08-09] MEDS: hydrOXYzine PAMOATE 25 MG CAPSULE (FP) PO SCH (06:15)
[2020-08-09 09:23] VITALS: BP 143/96; PULSE 77; TEMP 97.1
[2020-08-09] MEDS ORDERED: APIXABAN 5 MG TABLET PO SCH (10:45)
[2020-08-10] MEDS ORDERED: chlordiazePOXIDE HCL 10 MG CAPSULE PO PRN
[2020-08-10] MEDS ORDERED: chlordiazePOXIDE HCL 10 MG CAPSULE PO SCH (05:00)
[2020-08-11] MEDS ORDERED: chlordiazePOXIDE HCL 10 MG CAPSULE PO SCH (05:00)
[2020-08-12] MEDS ORDERED: chlordiazePOXIDE HCL 10 MG CAPSULE PO ONE (05:00)
== END 2020-08-09 10:17 | disposition home or self-care (01) | DRG 773 ==
LOC: YASAS 09:29 → Y6N 10:43
PROVIDERS: ADMIT Allergy & Immunology; ATTEND Allergy & Immunology
PROC: HZ2ZZZZ Detoxification Services for Substance Abuse Treatment (ICD-10-PCS; principal; 2020-08-07)
DX: F10.230 Alcohol dependence with withdrawal, uncomplicated (principal); F14.20 Cocaine dependence, uncomplicated; F11.20 Opioid dependence, uncomplicated; F25.0 Schizoaffective disorder, bipolar type; I10 Essential (primary) hypertension; I48.91 Unspecified atrial fibrillation; E11.9 Type 2 diabetes mellitus without complications; R56.9 Unspecified convulsions; Z86.79 Personal history of other diseases of the circulatory system; Z79.01 Long term (current) use of anticoagulants; Z98.890 Other specified postprocedural states; Z91.013 Allergy to seafood
CPT/HCPCS: 36415; 80053; 80164; 82962; 85027; 86780; 87389; C9803; U0003

== ENCOUNTER 2020-10-25 08:26 | Inpatient (IN) | payer OTHER ==
[2020-10-25 09:02] VITALS: BMI 39.4
[2020-10-25] MEDS ORDERED: IBUPROFEN 400 MG TABLET (FP) PO PRN (09:52)
[2020-10-25] MEDS ORDERED: ACETAMINOPHEN 325 MG TABLET (FP) PO PRN ×2 (09:52)
[2020-10-25] MEDS ORDERED: ONDANSETRON *ODT* 4 MG TABLET SL PRN (09:52)
[2020-10-25] MEDS ORDERED: METHOCARBAMOL 500 MG TABLET PO PRN (09:52)
[2020-10-25] MEDS ORDERED: BISMUTH SUBSALICYLATE 524 MG/30 ML UD PO PRN (09:52)
[2020-10-25] MEDS ORDERED: MENTHOL/PHENOL 1 EACH UD MM PRN (09:52)
[2020-10-25] MEDS ORDERED: MAGNESIUM CITRATE 300 ML BOTTLE PO PRN (09:52)
[2020-10-25] MEDS ORDERED: MAG HYDROX/AL HYDROX/SIMETH 30 ML UNIT-DOSE CUP PO PRN (09:52)
[2020-10-25] MEDS ORDERED: chlordiazePOXIDE HCL 25 MG CAPSULE PO PRN (09:52)
[2020-10-25] MEDS ORDERED: NICOTINE POLACRILEX 2 MG GUM BUC PRN (09:52)
[2020-10-25] MEDS: LISINOPRIL 20 MG TABLET PO SCH (11:14)
[2020-10-25] MEDS: hydrOXYzine PAMOATE 25 MG CAPSULE (FP) PO SCH ×4 (11:15→22:25)
[2020-10-25] MEDS: APIXABAN 5 MG TABLET PO SCH ×2 (11:15→22:24)
[2020-10-25] MEDS: chlordiazePOXIDE HCL 25 MG CAPSULE PO SCH ×3 (11:15→22:24)
[2020-10-25] MEDS: NICOTINE 7 MG/24 HOURS TOPICAL PATCH TD SCH (11:17)
[2020-10-25] MEDS: MAGNESIUM HYDROX 2400MG/30ML ORAL SUSPENSION 30 ML CUP PO PRN (11:18)
[2020-10-25] MEDS: PRENATAL VITAMINS W/ FOLIC ACID TABLET (FP) PO SCH (11:18)
[2020-10-25] MEDS: amLODIPine BESYLATE 10 MG TABLET (FP) PO SCH (12:02)
[2020-10-25 14:41] LABS: HEMATOCRIT 47.9 % (35.4-49); HEMOGLOBIN 16.3 GM/dL (11.7-16.9); MEAN PLT VOLUME 10.3 fl (7.5-11.1); PLATELET COUNT 276 K/MM3 (134-434); RDW 15.8 % (11.9-15.9)
[2020-10-25 14:48] LABS: ALBUMIN 4.1 g/dl (3.4-5.0); BLOOD UREA NITROGEN 13.8 mg/dL (7-18); CALCIUM 8.9 mg/dL (8.5-10.1)
[2020-10-25 14:51] LABS: CREATININE 1.1 mg/dL (0.55-1.3)
[2020-10-25 14:53] LABS: BILIRUBIN,TOTAL 0.3 mg/dL (0.2-1)
[2020-10-25 15:00] LABS: TOT PROT 7.7 g/dl (6.4-8.2)
[2020-10-25 15:42] LABS: HIV INTERPRETATION NEGATIVE (NEGATIVE)
[2020-10-25] MEDS: MIRTAZAPINE 30 MG TABLET PO SCH (22:24)
[2020-10-25] MEDS: THIAMINE HCL 100 MG TABLET (FP) PO SCH (22:24)
[2020-10-25] MEDS: DIVALPROEX SODIUM 500 MG TABLET E.C. PO SCH (22:24)
[2020-10-25] MEDS: MELATONIN 5 MG TABLETS PO SCH (22:25)
[2020-10-26] MEDS: chlordiazePOXIDE HCL 25 MG CAPSULE PO SCH ×4 (05:17→23:32)
[2020-10-26] MEDS: MAGNESIUM HYDROX 2400MG/30ML ORAL SUSPENSION 30 ML CUP PO PRN (05:19)
[2020-10-26] MEDS: hydrOXYzine PAMOATE 25 MG CAPSULE (FP) PO SCH ×5 (05:20→23:32)
[2020-10-26] MEDS ORDERED: ARIPiprazole 10 MG TABLET PO SCH (10:00)
[2020-10-26] MEDS: APIXABAN 5 MG TABLET PO SCH ×2 (10:08→23:31)
[2020-10-26] MEDS: PRENATAL VITAMINS W/ FOLIC ACID TABLET (FP) PO SCH (10:08)
[2020-10-26] MEDS: NICOTINE 7 MG/24 HOURS TOPICAL PATCH TD SCH (10:08)
[2020-10-26] MEDS: amLODIPine BESYLATE 10 MG TABLET (FP) PO SCH (10:08)
[2020-10-26] MEDS: DIVALPROEX SODIUM 500 MG TABLET E.C. PO SCH ×2 (10:08→23:31)
[2020-10-26] MEDS: LISINOPRIL 20 MG TABLET PO SCH (10:08)
[2020-10-26 23:21] VITALS: TEMP 96.9
[2020-10-26] MEDS: MELATONIN 5 MG TABLETS PO SCH (23:31)
[2020-10-26] MEDS: MIRTAZAPINE 30 MG TABLET PO SCH (23:31)
[2020-10-26] MEDS: THIAMINE HCL 100 MG TABLET (FP) PO SCH (23:32)
[2020-10-27] MEDS ORDERED: chlordiazePOXIDE HCL 25 MG CAPSULE PO SCH (05:00)
[2020-10-27] MEDS: hydrOXYzine PAMOATE 25 MG CAPSULE (FP) PO SCH (05:27)
[2020-10-27] MEDS: MAGNESIUM HYDROX 2400MG/30ML ORAL SUSPENSION 30 ML CUP PO PRN (05:30)
[2020-10-27 06:17] VITALS: BP 126/98; PULSE 79
[2020-10-28] MEDS ORDERED: chlordiazePOXIDE HCL 10 MG CAPSULE PO PRN
[2020-10-28] MEDS ORDERED: chlordiazePOXIDE HCL 10 MG CAPSULE PO SCH (05:00)
[2020-10-29] MEDS ORDERED: chlordiazePOXIDE HCL 10 MG CAPSULE PO SCH (05:00)
[2020-10-30] MEDS ORDERED: chlordiazePOXIDE HCL 10 MG CAPSULE PO ONE (05:00)
== END 2020-10-27 07:32 | disposition left against medical advice (07) | DRG 770 ==
LOC: YASAS 08:26 → Y6N 10:33
PROVIDERS: ADMIT Allergy & Immunology; ATTEND Allergy & Immunology
PROC: HZ2ZZZZ Detoxification Services for Substance Abuse Treatment (ICD-10-PCS; principal; 2020-10-25)
DX: F10.230 Alcohol dependence with withdrawal, uncomplicated (principal); F14.20 Cocaine dependence, uncomplicated; F11.20 Opioid dependence, uncomplicated; F17.210 Nicotine dependence, cigarettes, uncomplicated; F19.282 Other psychoactive substance dependence with psychoactive substance-induced sleep disorder; F19.280 Other psychoactive substance dependence with psychoactive substance-induced anxiety disorder; F25.0 Schizoaffective disorder, bipolar type; I10 Essential (primary) hypertension; I48.91 Unspecified atrial fibrillation; E11.9 Type 2 diabetes mellitus without complications; J45.909 Unspecified asthma, uncomplicated; Z86.79 Personal history of other diseases of the circulatory system; Z51.81 Encounter for therapeutic drug level monitoring
CPT/HCPCS: 36415; 80053; 80164; 82962; 83036; 85027; 86780; 87389; C9803; U0003; U0005

== ENCOUNTER 2021-07-25 14:43 | Inpatient (IN) | payer OTHER ==
[2021-07-25 18:50] VITALS: BMI 41.2
[2021-07-25] MEDS ORDERED: IBUPROFEN 400 MG TABLET (FP) PO PRN (21:49)
[2021-07-25] MEDS ORDERED: MAGNESIUM CITRATE 300 ML BOTTLE PO PRN (21:49)
[2021-07-25] MEDS ORDERED: MAGNESIUM HYDROX 2400MG/30ML ORAL SUSPENSION 30 ML CUP PO PRN (21:49)
[2021-07-25] MEDS ORDERED: ACETAMINOPHEN 325 MG TABLET (FP) PO PRN (21:49)
[2021-07-25] MEDS ORDERED: P-EPHED 60MG/TRIPROLIDI 2.5MG TABLET PO PRN (21:49)
[2021-07-25] MEDS ORDERED: MAG HYDROX/AL HYDROX/SIMETH 30 ML UNIT-DOSE CUP PO PRN (21:49)
[2021-07-25] MEDS ORDERED: LOPERAMIDE HCL 2 MG CAPSULE PO PRN (21:49)
[2021-07-25] MEDS ORDERED: NICOTINE 10 MG CARTRIDGE (INHALER) IH PRN (21:49)
[2021-07-25] MEDS ORDERED: TUBERCULIN PPD 5 TU/0.1ML VIAL ID ONE (22:26)
[2021-07-25] MEDS: MELATONIN 5 MG TABLETS PO SCH (22:29)
[2021-07-25] MEDS: THIAMINE HCL 100 MG TABLET (FP) PO SCH (22:29)
[2021-07-26] MEDS: PRENATAL VITAMINS W/ FOLIC ACID TABLET (FP) PO SCH (11:04)
[2021-07-26] MEDS: NICOTINE 14 MG/24 HOURS TOPICAL PATCH TD SCH (11:04)
[2021-07-26] MEDS: ARIPiprazole 10 MG TABLET PO SCH (11:05)
[2021-07-26 11:57] LABS: HEMATOCRIT 41.5 % (35.4-49); HEMOGLOBIN 14.2 GM/dL (11.7-16.9); MCH 31.1 pg (25.7-33.7); MCHC 34.3 g/dl (32.0-35.9); MEAN CELL VOLUME 90.7 fl (80-96); MEAN PLT VOLUME 9.2 fl (7.5-11.1); PLATELET COUNT 226 10^3/uL (134-434); RBC 4.58 M/mm3 (4.00-5.60); RDW 16.2 % (11.9-15.9)
[2021-07-26 12:05] LABS: EPI CELLS 2 /uL (0-25.1); HYALINE CASTS 0 /uL (0-3.1); PH,URINE 5.5 (5.0-8.0); URINE APPEARANCE CLEAR; URINE BACTERIA 2 /uL (0-1359); URINE BILIRUBIN NEGATIVE (NEGATIVE); URINE COLOR YELLOW; URINE GLUCOSE (UA) NEGATIVE (NEGATIVE); URINE KETONE NEGATIVE (NEGATIVE); URINE LEUK ESTERASE NEGATIVE (NEGATIVE); URINE NITRITE NEGATIVE (NEGATIVE); URINE PROTEIN 2+ (NEGATIVE); URINE RBC 1 /uL (0-23.9); URINE UROBILINOGEN 0.2 mg/dL (0.2-1.0); URINE WBC 2 /uL (0-25.8)
[2021-07-26 12:23] LABS: SYPHILIS W/ RPR CONF NON-REACTIVE (NONREACTIVE)
[2021-07-26 12:39] LABS: ALBUMIN 3.6 g/dl (3.4-5.0)
[2021-07-26 12:40] LABS: CREATININE 1.2 mg/dL (0.55-1.3)
[2021-07-26 12:42] LABS: BILIRUBIN,TOTAL 0.3 mg/dL (0.2-1); CALCIUM 8.9 mg/dL (8.5-10.1)
[2021-07-26 12:53] LABS: HIV INTERPRETATION NEGATIVE (NEGATIVE)
[2021-07-26] MEDS: THIAMINE HCL 100 MG TABLET (FP) PO SCH (21:05)
[2021-07-26] MEDS: MELATONIN 5 MG TABLETS PO SCH (21:05)
[2021-07-26] MEDS: MIRTAZAPINE 15 MG TABLET (FP) PO SCH (21:05)
[2021-07-27] MEDS: LISINOPRIL 20 MG TABLET PO SCH (10:00)
[2021-07-27] MEDS ORDERED: APIXABAN 5 MG TABLET PO SCH ×2 (10:00→13:21)
[2021-07-27] MEDS: amLODIPine BESYLATE 10 MG TABLET (FP) PO SCH (10:00)
[2021-07-27] MEDS: ARIPiprazole 10 MG TABLET PO SCH (10:00)
[2021-07-27] MEDS: PRENATAL VITAMINS W/ FOLIC ACID TABLET (FP) PO SCH (10:00)
[2021-07-27] MEDS: NICOTINE 14 MG/24 HOURS TOPICAL PATCH TD SCH (10:01)
[2021-07-27] MEDS ORDERED: FLU VACC QS2021-22(6MOS UP)/PF 60 MCG/0.5 ML SYRINGE IM ONE (12:00)
[2021-07-27] MEDS: guaiFENesin 200 MG/10 ML 10 ML UNIT-DOSE CUPS PO PRN (13:41)
[2021-07-27] MEDS: THIAMINE HCL 100 MG TABLET (FP) PO SCH (21:15)
[2021-07-27] MEDS: MIRTAZAPINE 15 MG TABLET (FP) PO SCH (21:15)
[2021-07-27] MEDS: MELATONIN 5 MG TABLETS PO SCH (21:16)
[2021-07-27] MEDS: APIXABAN 5 MG TABLET PO SCH (21:16)
[2021-07-28] MEDS: APIXABAN 5 MG TABLET PO SCH ×2 (10:27→21:01)
[2021-07-28] MEDS: ARIPiprazole 10 MG TABLET PO SCH (10:27)
[2021-07-28] MEDS: LISINOPRIL 20 MG TABLET PO SCH (10:28)
[2021-07-28] MEDS: PRENATAL VITAMINS W/ FOLIC ACID TABLET (FP) PO SCH (10:28)
[2021-07-28] MEDS: amLODIPine BESYLATE 10 MG TABLET (FP) PO SCH (10:28)
[2021-07-28] MEDS: NICOTINE 14 MG/24 HOURS TOPICAL PATCH TD SCH (10:29)
[2021-07-28] MEDS: guaiFENesin 200 MG/10 ML 10 ML UNIT-DOSE CUPS PO PRN (10:32)
[2021-07-28] MEDS: MIRTAZAPINE 15 MG TABLET (FP) PO SCH (21:00)
[2021-07-28] MEDS: THIAMINE HCL 100 MG TABLET (FP) PO SCH (21:01)
[2021-07-28] MEDS: MELATONIN 5 MG TABLETS PO SCH (21:01)
[2021-07-29 07:26] VITALS: TEMP 98
[2021-07-29] MEDS: guaiFENesin 200 MG/10 ML 10 ML UNIT-DOSE CUPS PO PRN (10:35)
[2021-07-29] MEDS: PRENATAL VITAMINS W/ FOLIC ACID TABLET (FP) PO SCH (10:36)
[2021-07-29] MEDS: LISINOPRIL 20 MG TABLET PO SCH (10:36)
[2021-07-29] MEDS: APIXABAN 5 MG TABLET PO SCH (10:37)
[2021-07-29] MEDS: amLODIPine BESYLATE 10 MG TABLET (FP) PO SCH (10:37)
[2021-07-29] MEDS: ARIPiprazole 10 MG TABLET PO SCH (10:37)
[2021-07-29] MEDS: NICOTINE 14 MG/24 HOURS TOPICAL PATCH TD SCH (10:38)
[2021-07-29 12:25] VITALS: BP 142/90; PULSE 76
[2021-07-29] MEDS ORDERED: NICOTINE POLACRILEX 2 MG GUM BUC PRN (13:50)
[2021-07-29] MEDS ORDERED: HYDROCORTISONE 2.5% TOPICAL CREAM 30 GM TUBE RC SCH (22:00)
[2021-07-30 14:11] LABS: SARS-CoV-2 NAA Not Detected (Not Detected)
== END 2021-07-29 16:00 | disposition left against medical advice (07) | DRG 774 ==
LOC: YASAS 14:43 → Y3W 21:26 → Y3N 21:26 → UNDOADMIN 21:26
PROVIDERS: ADMIT Allergy & Immunology; ATTEND Allergy & Immunology
PROC: HZ2ZZZZ Detoxification Services for Substance Abuse Treatment (ICD-10-PCS; principal; 2021-07-25)
DX: F10.230 Alcohol dependence with withdrawal, uncomplicated (principal); F14.20 Cocaine dependence, uncomplicated; F25.0 Schizoaffective disorder, bipolar type; F31.9 Bipolar disorder, unspecified; I10 Essential (primary) hypertension; E11.9 Type 2 diabetes mellitus without complications; J45.909 Unspecified asthma, uncomplicated; K21.9 Gastro-esophageal reflux disease without esophagitis; L73.1 Pseudofolliculitis barbae; Z86.79 Personal history of other diseases of the circulatory system; Z79.01 Long term (current) use of anticoagulants; Z87.891 Personal history of nicotine dependence; Z91.013 Allergy to seafood; Z91.018 Allergy to other foods
CPT/HCPCS: 36415; 80053; 81003; 82962; 85027; 86780; 86803; 87389; 87491; 87591; C9803; U0003; U0005

== ENCOUNTER 2022-10-04 06:34 | Inpatient (IN) | payer OTHER ==
[2022-10-04 07:15] VITALS: BMI 35.3
[2022-10-04] MEDS ORDERED: AMMONIUM LACTATE 12% LOTION 225 GM BOTTLE TP PRN (08:44)
[2022-10-04] MEDS ORDERED: BENZONATATE 200 MG CAPSULE PO PRN (08:44)
[2022-10-04] MEDS ORDERED: POLYETHYLENE GLYCOL (HEALTHYLAX) 3350 17 GM PACKET PO PRN (08:44)
[2022-10-04] MEDS ORDERED: ACETAMINOPHEN 325 MG TABLET (FP) PO PRN (08:44)
[2022-10-04] MEDS ORDERED: BENZOCAINE/MENTHOL (CHLORASEPTIC ) LOZENGE MM PRN (08:44)
[2022-10-04] MEDS ORDERED: MAGNESIUM HYDROX 2400MG/30ML ORAL SUSPENSION 30 ML CUP PO PRN (08:44)
[2022-10-04] MEDS ORDERED: MAG HYDROX/AL HYDROX/SIMETH 30 ML UNIT-DOSE CUP PO PRN (08:44)
[2022-10-04] MEDS ORDERED: guaiFENesin 600 MG TABLET.ER (FP) PO PRN (08:44)
[2022-10-04] MEDS ORDERED: COLLOIDAL OATMEAL 1 BAR EACH TP PRN (08:44)
[2022-10-04] MEDS ORDERED: LOPERAMIDE HCL 2 MG CAPSULE PO PRN (08:44)
[2022-10-04] MEDS ORDERED: LISINOPRIL 20 MG TABLET PO SCH (10:00)
[2022-10-04] MEDS ORDERED: amLODIPine BESYLATE 10 MG TABLET (FP) PO SCH (10:00)
[2022-10-04] MEDS ORDERED: amLODIPine BESYLATE 5 MG TABLET (FP) ONE (10:10)
[2022-10-04] MEDS ORDERED: PRENATAL VITAMINS W/ FOLIC ACID TABLET (FP) PO ONE (10:11)
[2022-10-04] MEDS ORDERED: LISINOPRIL 10 MG TABLET ONE (10:11)
[2022-10-04] MEDS: PRENATAL VITAMINS W/ FOLIC ACID TABLET (FP) PO SCH (10:14)
[2022-10-04 11:05] LABS: HEMATOCRIT 40.8 % (35.4-49); HEMOGLOBIN 14.2 GM/dL (11.7-16.9); MCH 30.6 pg (25.7-33.7); MCHC 34.7 g/dl (32.0-35.9); MEAN CELL VOLUME 88.1 fl (80-96); MEAN PLT VOLUME 10.1 fl (7.5-11.1); PLATELET COUNT 259 10^3/uL (134-434); RBC 4.64 M/mm3 (4.00-5.60); RDW 15.5 % (11.9-15.9); WHITE BLOOD COUNT 7.6 K/mm3 (4.0-10.0)
[2022-10-04 11:23] LABS: ALBUMIN 3.7 g/dl (3.4-5.0); CALCIUM 9.6 mg/dL (8.5-10.1)
[2022-10-04 11:24] LABS: BLOOD UREA NITROGEN 10.8 mg/dL (7-18)
[2022-10-04 11:28] LABS: BILIRUBIN,TOTAL 0.8 mg/dL (0.2-1); TOT PROT 7.6 g/dl (6.4-8.2)
[2022-10-04 11:29] LABS: CREATININE 1.2 mg/dL (0.55-1.3)
[2022-10-04 11:32] LABS: SYPHILIS W/ RPR CONF NON-REACTIVE (NONREACTIVE)
[2022-10-04] MEDS: GABAPENTIN 300 MG CAPSULE PO SCH (11:59)
[2022-10-04] MEDS: amLODIPine BESYLATE 10 MG TABLET (FP) PO SCH (15:57)
[2022-10-04] MEDS: LISINOPRIL 20 MG TABLET PO SCH (15:57)
[2022-10-04] MEDS: IBUPROFEN 400 MG TABLET (FP) PO PRN (17:39)
[2022-10-04] MEDS: THIAMINE HCL 100 MG TABLET (FP) PO SCH (23:34)
[2022-10-04] MEDS: MELATONIN 5 MG TABLETS PO SCH (23:34)
[2022-10-05] MEDS ORDERED: LORazepam 0.5 MG TABLET PO PRN (10:03)
[2022-10-05] MEDS ORDERED: GABAPENTIN 300 MG CAPSULE PO ONE (10:08)
[2022-10-05] MEDS ORDERED: LORazepam 1 MG TABLET ONE (10:16)
[2022-10-05] MEDS ORDERED: GABAPENTIN 100 MG CAPSULE ONE (10:17)
[2022-10-05] MEDS ORDERED: PRENATAL VITAMINS W/ FOLIC ACID TABLET (FP) PO ONE (10:17)
[2022-10-05] MEDS: amLODIPine BESYLATE 5 MG TABLET (FP) PO SCH (10:30)
[2022-10-05] MEDS: PRENATAL VITAMINS W/ FOLIC ACID TABLET (FP) PO SCH (10:31)
[2022-10-05] MEDS: LISINOPRIL 20 MG TABLET PO SCH (12:59)
[2022-10-05] MEDS: GABAPENTIN 300 MG CAPSULE PO SCH ×2 (12:59→22:20)
[2022-10-05] MEDS: amLODIPine BESYLATE 10 MG TABLET (FP) PO SCH (12:59)
[2022-10-05] MEDS: IBUPROFEN 600 MG TABLET (FP) PO PRN (13:18)
[2022-10-05] MEDS: LORazepam 1 MG TABLET PO SCH ×2 (17:40→22:20)
[2022-10-05] MEDS: MELATONIN 5 MG TABLETS PO SCH (22:20)
[2022-10-05] MEDS: THIAMINE HCL 100 MG TABLET (FP) PO SCH (22:20)
[2022-10-06] MEDS: LORazepam 1 MG TABLET PO SCH ×4 (05:55→22:28)
[2022-10-06] MEDS: PRENATAL VITAMINS W/ FOLIC ACID TABLET (FP) PO SCH (10:28)
[2022-10-06] MEDS: GABAPENTIN 300 MG CAPSULE PO SCH ×2 (10:28→22:27)
[2022-10-06] MEDS: amLODIPine BESYLATE 5 MG TABLET (FP) PO SCH (10:28)
[2022-10-06] MEDS: hydrOXYzine PAMOATE 25 MG CAPSULE (FP) PO PRN (18:02)
[2022-10-06] MEDS: MIRTAZAPINE 15 MG TABLET (FP) PO SCH (22:27)
[2022-10-06] MEDS: THIAMINE HCL 100 MG TABLET (FP) PO SCH (22:27)
[2022-10-06] MEDS: IBUPROFEN 600 MG TABLET (FP) PO PRN (22:30)
[2022-10-07] MEDS ORDERED: LORazepam 0.5 MG TABLET PO PRN
[2022-10-07] MEDS: LORazepam 0.5 MG TABLET PO SCH ×5 (05:44→23:36)
[2022-10-07] MEDS: hydrOXYzine PAMOATE 25 MG CAPSULE (FP) PO PRN (05:45)
[2022-10-07] MEDS: IBUPROFEN 400 MG TABLET (FP) PO PRN (05:46)
[2022-10-07] MEDS: PRENATAL VITAMINS W/ FOLIC ACID TABLET (FP) PO SCH (10:43)
[2022-10-07] MEDS: amLODIPine BESYLATE 5 MG TABLET (FP) PO SCH (10:43)
[2022-10-07] MEDS: GABAPENTIN 300 MG CAPSULE PO SCH ×2 (10:43→23:36)
[2022-10-07] MEDS: THIAMINE HCL 100 MG TABLET (FP) PO SCH (23:36)
[2022-10-07] MEDS: MIRTAZAPINE 15 MG TABLET (FP) PO SCH (23:36)
[2022-10-08] MEDS ORDERED: cloNIDine HCL 0.1 MG TABLET PO ONE (00:11)
[2022-10-08] MEDS ORDERED: LORazepam 0.5 MG TABLET PO ONE (05:00)
[2022-10-08] MEDS: GABAPENTIN 300 MG CAPSULE PO SCH ×2 (09:50→22:45)
[2022-10-08] MEDS: hydrOXYzine PAMOATE 25 MG CAPSULE (FP) PO PRN ×2 (09:50→19:39)
[2022-10-08] MEDS: PRENATAL VITAMINS W/ FOLIC ACID TABLET (FP) PO SCH (09:51)
[2022-10-08] MEDS ORDERED: amLODIPine BESYLATE 10 MG TABLET (FP) PO SCH (10:15)
[2022-10-08 13:01] VITALS: RESP 18
[2022-10-08] MEDS: IBUPROFEN 600 MG TABLET (FP) PO PRN (19:39)
[2022-10-08] MEDS: MIRTAZAPINE 15 MG TABLET (FP) PO SCH (22:45)
[2022-10-08] MEDS: THIAMINE HCL 100 MG TABLET (FP) PO SCH (22:45)
[2022-10-09 11:08] VITALS: BP 159/96; PULSE 99; TEMP 97.3
== END 2022-10-09 08:45 | disposition home or self-care (01) | DRG 774 ==
LOC: YASAS 06:34 → Y6N 09:49
PROVIDERS: ADMIT Allergy & Immunology; ATTEND Surgery
PROC: HZ2ZZZZ Detoxification Services for Substance Abuse Treatment (ICD-10-PCS; principal; 2022-10-04)
DX: F10.230 Alcohol dependence with withdrawal, uncomplicated (principal); F13.230 Sedative, hypnotic or anxiolytic dependence with withdrawal, uncomplicated; F14.20 Cocaine dependence, uncomplicated; F25.1 Schizoaffective disorder, depressive type; F19.282 Other psychoactive substance dependence with psychoactive substance-induced sleep disorder; F19.280 Other psychoactive substance dependence with psychoactive substance-induced anxiety disorder; I10 Essential (primary) hypertension; K21.9 Gastro-esophageal reflux disease without esophagitis; Z20.822 Contact with and (suspected) exposure to COVID-19; Z86.39 Personal history of other endocrine, nutritional and metabolic disease; Z87.891 Personal history of nicotine dependence; Z86.69 Personal history of other diseases of the nervous system and sense organs
CPT/HCPCS: 36415; 80053; 85027; 86780; 86803; 87811; 93005; 93010; C9803-CS; U0003; U0005

== ENCOUNTER 2022-11-26 13:48 | Inpatient (IN) | payer OTHER ==
[2022-11-26 14:34] VITALS: RESP 18; BMI 38.0
[2022-11-26] MEDS ORDERED: cloNIDine HCL 0.1 MG TABLET PO ONE ×2 (14:36→22:00)
[2022-11-26] MEDS ORDERED: cloNIDine HCL 0.1 MG TABLET ONE (14:39)
[2022-11-26] MEDS ORDERED: LOPERAMIDE HCL 2 MG CAPSULE PO PRN (14:44)
[2022-11-26] MEDS ORDERED: NALOXONE HCL 0.4 MG/ML VIAL IM PRN (14:44)
[2022-11-26] MEDS ORDERED: AMMONIUM LACTATE 12% LOTION 225 GM BOTTLE TP PRN (14:44)
[2022-11-26] MEDS ORDERED: MAG HYDROX/AL HYDROX/SIMETH 30 ML UNIT-DOSE CUP PO PRN (14:44)
[2022-11-26] MEDS ORDERED: POLYETHYLENE GLYCOL (HEALTHYLAX) 3350 17 GM PACKET PO PRN (14:44)
[2022-11-26] MEDS ORDERED: COLLOIDAL OATMEAL 1 BAR EACH TP PRN (14:44)
[2022-11-26] MEDS ORDERED: ACETAMINOPHEN 325 MG TABLET (FP) PO PRN (14:44)
[2022-11-26] MEDS ORDERED: BENZONATATE 200 MG CAPSULE PO PRN (14:44)
[2022-11-26] MEDS ORDERED: MAGNESIUM HYDROX 2400MG/30ML ORAL SUSPENSION 30 ML CUP PO PRN (14:44)
[2022-11-26] MEDS ORDERED: guaiFENesin 600 MG TABLET.ER (FP) PO PRN (14:44)
[2022-11-26] MEDS ORDERED: NALOXONE HCL (KLOXXADO) 8 MG SPRAY NS PRN (14:44)
[2022-11-26] MEDS ORDERED: BENZOCAINE/MENTHOL (CHLORASEPTIC ) LOZENGE MM PRN (14:44)
[2022-11-26] MEDS: hydrOXYzine PAMOATE 25 MG CAPSULE (FP) PO PRN (17:03)
[2022-11-26] MEDS: THIAMINE HCL 100 MG TABLET (FP) PO SCH (21:07)
[2022-11-26] MEDS: MELATONIN 5 MG TABLETS PO SCH (21:07)
[2022-11-26] MEDS: IBUPROFEN 400 MG TABLET (FP) PO PRN (21:08)
[2022-11-27] MEDS: amLODIPine BESYLATE 10 MG TABLET (FP) PO SCH (09:49)
[2022-11-27] MEDS: LISINOPRIL 20 MG TABLET PO SCH (09:49)
[2022-11-27] MEDS: GABAPENTIN 300 MG CAPSULE PO SCH (09:49)
[2022-11-27] MEDS: PRENATAL VITAMINS W/ FOLIC ACID TABLET (FP) PO SCH (09:49)
[2022-11-27] MEDS ORDERED: PATIENT'S OWN MEDICATION (NON-FORMULARY) (Lisinopril [Lisinopril] 40 MG Tablet) PO SCH (10:00)
[2022-11-27 10:15] LABS: EPI CELLS 2 /uL (0-25.1); HYALINE CASTS 0 /uL (0-3.1); URINE APPEARANCE CLEAR; URINE BACTERIA 4 /uL (0-1359); URINE BILIRUBIN NEGATIVE (NEGATIVE); URINE COLOR YELLOW; URINE GLUCOSE (UA) NEGATIVE (NEGATIVE); URINE KETONE NEGATIVE (NEGATIVE); URINE LEUK ESTERASE NEGATIVE (NEGATIVE); URINE NITRITE NEGATIVE (NEGATIVE); URINE PROTEIN 1+ (NEGATIVE); URINE RBC 3 /uL (0-23.9); URINE UROBILINOGEN 0.2 mg/dL (0.2-1.0); URINE WBC 1 /uL (0-25.8)
[2022-11-27 10:23] LABS: HEMATOCRIT 40.7 % (35.4-49); HEMOGLOBIN 13.9 GM/dL (11.7-16.9); MCH 30.6 pg (25.7-33.7); MCHC 34.1 g/dl (32.0-35.9); MEAN CELL VOLUME 89.6 fl (80-96); MEAN PLT VOLUME 9.5 fl (7.5-11.1); PLATELET COUNT 250 10^3/uL (134-434); RBC 4.55 M/mm3 (4.00-5.60); RDW 15.5 % (11.9-15.9); WHITE BLOOD COUNT 5.6 K/mm3 (4.0-10.0)
[2022-11-27 10:31] LABS: CALCIUM 9.2 mg/dL (8.5-10.1)
[2022-11-27 10:32] LABS: ALBUMIN 3.6 g/dl (3.4-5.0); BLOOD UREA NITROGEN 11.8 mg/dL (7-18); CREATININE 1.1 mg/dL (0.55-1.3)
[2022-11-27 10:34] LABS: BILIRUBIN,TOTAL 0.3 mg/dL (0.2-1); TOT PROT 6.9 g/dl (6.4-8.2)
[2022-11-27 11:22] LABS: HIV INTERPRETATION NEGATIVE (NEGATIVE)
[2022-11-27] MEDS: IBUPROFEN 600 MG TABLET (FP) PO PRN (12:36)
[2022-11-27] MEDS: ARIPiprazole 15 MG TABLET PO SCH (12:36)
[2022-11-27] MEDS: hydrOXYzine PAMOATE 25 MG CAPSULE (FP) PO PRN (21:23)
[2022-11-27] MEDS: THIAMINE HCL 100 MG TABLET (FP) PO SCH (21:23)
[2022-11-27] MEDS: MIRTAZAPINE 15 MG TABLET (FP) PO SCH (21:23)
[2022-11-27] MEDS: MELATONIN 5 MG TABLETS PO SCH (21:23)
[2022-11-27] MEDS: IBUPROFEN 400 MG TABLET (FP) PO PRN (21:25)
[2022-11-28] MEDS: ARIPiprazole 15 MG TABLET PO SCH (09:52)
[2022-11-28] MEDS: GABAPENTIN 300 MG CAPSULE PO SCH (09:52)
[2022-11-28] MEDS: amLODIPine BESYLATE 10 MG TABLET (FP) PO SCH (09:52)
[2022-11-28] MEDS: PRENATAL VITAMINS W/ FOLIC ACID TABLET (FP) PO SCH (09:52)
[2022-11-28] MEDS: LISINOPRIL 20 MG TABLET PO SCH (09:52)
[2022-11-28] MEDS: IBUPROFEN 600 MG TABLET (FP) PO PRN (21:11)
[2022-11-28] MEDS: THIAMINE HCL 100 MG TABLET (FP) PO SCH (21:11)
[2022-11-28] MEDS: MELATONIN 5 MG TABLETS PO SCH (21:11)
[2022-11-28] MEDS: MIRTAZAPINE 15 MG TABLET (FP) PO SCH (21:11)
[2022-11-28] MEDS: hydrOXYzine PAMOATE 25 MG CAPSULE (FP) PO PRN (21:11)
[2022-11-29 04:05] VITALS: BP 159/92; PULSE 70; TEMP 97.5
== END 2022-11-29 04:01 | disposition home or self-care (01) | DRG 772 ==
LOC: YASAS 13:48 → Y5N 15:01
PROVIDERS: ADMIT Allergy & Immunology; ATTEND Psychiatry & Neurology Pain Medicine
PROC: HZ42ZZZ Group Counseling for Substance Abuse Treatment, Cognitive-Behavioral (ICD-10-PCS; principal; 2022-11-26)
DX: F10.20 Alcohol dependence, uncomplicated (principal); F14.20 Cocaine dependence, uncomplicated; F13.20 Sedative, hypnotic or anxiolytic dependence, uncomplicated; F25.0 Schizoaffective disorder, bipolar type; F19.282 Other psychoactive substance dependence with psychoactive substance-induced sleep disorder; F19.280 Other psychoactive substance dependence with psychoactive substance-induced anxiety disorder; F31.9 Bipolar disorder, unspecified; G62.9 Polyneuropathy, unspecified; I10 Essential (primary) hypertension; J45.30 Mild persistent asthma, uncomplicated; K21.9 Gastro-esophageal reflux disease without esophagitis; E11.59 Type 2 diabetes mellitus with other circulatory complications; Z87.891 Personal history of nicotine dependence
CPT/HCPCS: 36415; 80053; 81003; 82962; 83036; 85027; 86780; 87389; 87635

== ENCOUNTER 2023-02-02 14:03 | Inpatient (IN) | payer OTHER ==
[2023-02-02 14:41] VITALS: BMI 37.7
[2023-02-02] MEDS ORDERED: MAGNESIUM HYDROX 2400MG/30ML ORAL SUSPENSION 30 ML CUP PO PRN (18:12)
[2023-02-02] MEDS ORDERED: ONDANSETRON *ODT* 4 MG TABLET SL PRN (18:12)
[2023-02-02] MEDS ORDERED: P-EPHED 60MG/TRIPROLIDI 2.5MG TABLET PO PRN (18:12)
[2023-02-02] MEDS ORDERED: NICOTINE POLACRILEX 2 MG GUM BUC PRN (18:12)
[2023-02-02] MEDS ORDERED: ACETAMINOPHEN 325 MG TABLET (FP) PO PRN (18:12)
[2023-02-02] MEDS ORDERED: IBUPROFEN 400 MG TABLET (FP) PO PRN (18:12)
[2023-02-02] MEDS ORDERED: MAG HYDROX/AL HYDROX/SIMETH 30 ML UNIT-DOSE CUP PO PRN (18:12)
[2023-02-02] MEDS ORDERED: LOPERAMIDE HCL 2 MG CAPSULE PO PRN (18:12)
[2023-02-02] MEDS ORDERED: BENZONATATE 200 MG CAPSULE PO PRN (18:12)
[2023-02-02] MEDS ORDERED: POLYETHYLENE GLYCOL (HEALTHYLAX) 3350 17 GM PACKET PO PRN (18:12)
[2023-02-02] MEDS ORDERED: guaiFENesin 600 MG TABLET.ER (FP) PO PRN (18:12)
[2023-02-02] MEDS ORDERED: DICYCLOMINE HCL 10 MG CAPSULE PO PRN (18:12)
[2023-02-02] MEDS ORDERED: BENZOCAINE/MENTHOL (CHLORASEPTIC ) LOZENGE MM PRN (18:12)
[2023-02-02] MEDS ORDERED: BISMUTH SUBSALICYLATE 524 MG/30 ML PO PRN (18:12)
[2023-02-02] MEDS: amLODIPine BESYLATE 5 MG TABLET (FP) PO SCH (19:05)
[2023-02-02] MEDS ORDERED: amLODIPine BESYLATE 5 MG TABLET (FP) ONE (19:05)
[2023-02-02] MEDS: IBUPROFEN 600 MG TABLET (FP) PO PRN (19:49)
[2023-02-02] MEDS: MELATONIN 5 MG TABLETS PO SCH (22:17)
[2023-02-02] MEDS: METHOCARBAMOL 500 MG TABLET PO PRN (22:17)
[2023-02-02] MEDS: THIAMINE HCL 100 MG TABLET (FP) PO SCH (22:17)
[2023-02-02] MEDS: hydrOXYzine PAMOATE 25 MG CAPSULE (FP) PO PRN (22:18)
[2023-02-03] MEDS: amLODIPine BESYLATE 5 MG TABLET (FP) PO SCH (10:01)
[2023-02-03] MEDS: PRENATAL VITAMINS W/ FOLIC ACID TABLET (FP) PO SCH (10:01)
[2023-02-03 11:37] LABS: HEMATOCRIT 39.2 % (35.4-49); MCH 29.8 pg (25.7-33.7); MCHC 33.2 g/dl (32.0-35.9); MEAN CELL VOLUME 89.9 fl (80-96); MEAN PLT VOLUME 9.8 fl (7.5-11.1); PLATELET COUNT 241 10^3/uL (134-434); RBC 4.37 M/mm3 (4.00-5.60); RDW 15.1 % (11.9-15.9); WHITE BLOOD COUNT 4.4 K/mm3 (4.0-10.0)
[2023-02-03 12:14] LABS: CALCIUM 8.8 mg/dL (8.5-10.1)
[2023-02-03 12:15] LABS: ALBUMIN 3.1 g/dl (3.4-5.0); BLOOD UREA NITROGEN 11.7 mg/dL (7-18)
[2023-02-03 12:18] LABS: CREATININE 1.1 mg/dL (0.55-1.3)
[2023-02-03 12:20] LABS: BILIRUBIN,TOTAL 0.4 mg/dL (0.2-1)
[2023-02-03 12:22] LABS: TOT PROT 6.5 g/dl (6.4-8.2)
[2023-02-03] MEDS: METHOCARBAMOL 500 MG TABLET PO PRN (14:49)
[2023-02-03] MEDS ORDERED: chlordiazePOXIDE HCL 25 MG CAPSULE PO PRN (15:10)
[2023-02-03] MEDS: chlordiazePOXIDE HCL 25 MG CAPSULE PO SCH ×2 (17:33→22:17)
[2023-02-03] MEDS: hydrOXYzine PAMOATE 25 MG CAPSULE (FP) PO PRN (17:35)
[2023-02-03] MEDS: THIAMINE HCL 100 MG TABLET (FP) PO SCH (21:56)
[2023-02-03] MEDS: MELATONIN 5 MG TABLETS PO SCH (21:56)
[2023-02-03] MEDS: MIRTAZAPINE 15 MG TABLET (FP) PO SCH (21:56)
[2023-02-03] MEDS: DIVALPROEX SODIUM 500 MG TABLET E.C. PO SCH (21:57)
[2023-02-03] MEDS: IBUPROFEN 600 MG TABLET (FP) PO PRN (22:18)
[2023-02-04] MEDS: chlordiazePOXIDE HCL 25 MG CAPSULE PO SCH ×4 (05:32→22:13)
[2023-02-04] MEDS: ARIPiprazole 10 MG TABLET PO SCH (10:28)
[2023-02-04] MEDS: amLODIPine BESYLATE 5 MG TABLET (FP) PO SCH (10:28)
[2023-02-04] MEDS: DIVALPROEX SODIUM 500 MG TABLET E.C. PO SCH ×2 (10:28→22:13)
[2023-02-04] MEDS: PRENATAL VITAMINS W/ FOLIC ACID TABLET (FP) PO SCH (10:28)
[2023-02-04] MEDS: IBUPROFEN 600 MG TABLET (FP) PO PRN ×2 (10:30→17:28)
[2023-02-04] MEDS: hydrOXYzine PAMOATE 25 MG CAPSULE (FP) PO PRN (17:29)
[2023-02-04] MEDS: MIRTAZAPINE 15 MG TABLET (FP) PO SCH (22:13)
[2023-02-04] MEDS: METHOCARBAMOL 500 MG TABLET PO PRN (22:13)
[2023-02-04] MEDS: MELATONIN 5 MG TABLETS PO SCH (22:13)
[2023-02-04] MEDS: THIAMINE HCL 100 MG TABLET (FP) PO SCH (22:13)
[2023-02-05] MEDS: chlordiazePOXIDE HCL 25 MG CAPSULE PO SCH ×2 (05:45→10:26)
[2023-02-05 09:13] VITALS: BP 133/79; PULSE 71; RESP 18; TEMP 96.9
[2023-02-05] MEDS: ARIPiprazole 10 MG TABLET PO SCH (10:25)
[2023-02-05] MEDS: PRENATAL VITAMINS W/ FOLIC ACID TABLET (FP) PO SCH (10:25)
[2023-02-05] MEDS: DIVALPROEX SODIUM 500 MG TABLET E.C. PO SCH (10:26)
[2023-02-05] MEDS: amLODIPine BESYLATE 5 MG TABLET (FP) PO SCH (10:26)
[2023-02-05] MEDS: hydrOXYzine PAMOATE 25 MG CAPSULE (FP) PO PRN (10:28)
[2023-02-05] MEDS: METHOCARBAMOL 500 MG TABLET PO PRN (10:28)
[2023-02-06] MEDS ORDERED: chlordiazePOXIDE HCL 10 MG CAPSULE PO PRN
[2023-02-06] MEDS ORDERED: chlordiazePOXIDE HCL 10 MG CAPSULE PO SCH (05:00)
[2023-02-07] MEDS ORDERED: chlordiazePOXIDE HCL 10 MG CAPSULE PO SCH (05:00)
[2023-02-08] MEDS ORDERED: chlordiazePOXIDE HCL 10 MG CAPSULE PO ONE (05:00)
== END 2023-02-05 12:09 | disposition left against medical advice (07) | DRG 770 ==
LOC: YASAS 14:03 → Y3N 19:10
PROVIDERS: ADMIT Allergy & Immunology; ATTEND Allergy & Immunology
PROC: HZ2ZZZZ Detoxification Services for Substance Abuse Treatment (ICD-10-PCS; principal; 2023-02-02)
DX: F10.230 Alcohol dependence with withdrawal, uncomplicated (principal); F14.20 Cocaine dependence, uncomplicated; F17.210 Nicotine dependence, cigarettes, uncomplicated; F19.24 Other psychoactive substance dependence with psychoactive substance-induced mood disorder; G62.9 Polyneuropathy, unspecified; G47.00 Insomnia, unspecified; I10 Essential (primary) hypertension; K21.9 Gastro-esophageal reflux disease without esophagitis; M54.50 Low back pain, unspecified; G89.29 Other chronic pain
CPT/HCPCS: 36415; 80053; 80164; 85027; 86780; 87635; 87811

== ENCOUNTER 2023-05-04 06:23 | Inpatient (IN) | payer OTHER ==
[2023-05-04 06:37] VITALS: BMI 36.1
[2023-05-04] MEDS ORDERED: LOPERAMIDE HCL 2 MG CAPSULE PO PRN (08:46)
[2023-05-04] MEDS ORDERED: IBUPROFEN 400 MG TABLET (FP) PO PRN (08:46)
[2023-05-04] MEDS ORDERED: ONDANSETRON *ODT* 4 MG TABLET SL PRN (08:46)
[2023-05-04] MEDS ORDERED: MAG HYDROX/AL HYDROX/SIMETH 30 ML UNIT-DOSE CUP PO PRN (08:46)
[2023-05-04] MEDS ORDERED: IBUPROFEN 600 MG TABLET (FP) PO PRN (08:46)
[2023-05-04] MEDS ORDERED: MAGNESIUM HYDROX 2400MG/30ML ORAL SUSPENSION 30 ML CUP PO PRN (08:46)
[2023-05-04] MEDS ORDERED: P-EPHED 60MG/TRIPROLIDI 2.5MG TABLET PO PRN (08:46)
[2023-05-04] MEDS ORDERED: DICYCLOMINE HCL 10 MG CAPSULE PO PRN (08:46)
[2023-05-04] MEDS ORDERED: BENZOCAINE/MENTHOL (CHLORASEPTIC ) LOZENGE MM PRN (08:46)
[2023-05-04] MEDS ORDERED: BENZONATATE 200 MG CAPSULE PO PRN (08:46)
[2023-05-04] MEDS ORDERED: hydrOXYzine PAMOATE 25 MG CAPSULE (FP) PO PRN (08:46)
[2023-05-04] MEDS ORDERED: guaiFENesin 600 MG TABLET.ER (FP) PO PRN (08:46)
[2023-05-04] MEDS ORDERED: POLYETHYLENE GLYCOL (HEALTHYLAX) 3350 17 GM PACKET PO PRN (08:46)
[2023-05-04] MEDS ORDERED: BISMUTH SUBSALICYLATE 262 MG/15 ML BTL PO PRN (08:46)
[2023-05-04] MEDS ORDERED: amLODIPine BESYLATE 5 MG TABLET (FP) ONE (09:21)
[2023-05-04] MEDS ORDERED: PRENATAL VITAMINS W/ FOLIC ACID TABLET (FP) PO ONE (09:21)
[2023-05-04] MEDS: amLODIPine BESYLATE 10 MG TABLET (FP) PO SCH (09:27)
[2023-05-04] MEDS: PRENATAL VITAMINS W/ FOLIC ACID TABLET (FP) PO SCH (11:44)
[2023-05-04] MEDS: SULFAMETHOXAZOLE/TRIMETHOPRIM 800MG/160MG D.S. TABLET PO SCH ×2 (12:06→22:28)
[2023-05-04] MEDS: BACITRACIN 0.9 GM PACKET TP SCH ×2 (12:06→22:28)
[2023-05-04] MEDS: APIXABAN 5 MG TABLET PO SCH ×2 (12:06→22:28)
[2023-05-04] MEDS: ARIPiprazole 10 MG TABLET PO SCH (14:58)
[2023-05-04 16:24] LABS: HIV INTERPRETATION NEGATIVE (NEGATIVE)
[2023-05-04] MEDS: THIAMINE HCL 100 MG TABLET (FP) PO SCH (22:28)
[2023-05-04] MEDS: ATORVASTATIN CA 10 MG TABLET (FP) PO SCH (22:28)
[2023-05-04] MEDS: MIRTAZAPINE 15 MG TABLET (FP) PO SCH (22:28)
[2023-05-04] MEDS: MELATONIN 5 MG TABLETS PO SCH (22:29)
[2023-05-04] MEDS: METHOCARBAMOL 500 MG TABLET PO PRN (22:30)
[2023-05-05] MEDS: METHOCARBAMOL 500 MG TABLET PO PRN (08:34)
[2023-05-05 09:11] LABS: POTASSIUM 3.5 mmol/L (3.5-5.1)
[2023-05-05 09:19] LABS: HEMATOCRIT 38.2 % (35.4-49); HEMOGLOBIN 12.4 GM/dL (11.7-16.9); MCH 29.4 pg (25.7-33.7); MCHC 32.6 g/dl (32.0-35.9); MEAN CELL VOLUME 90.4 fl (80-96); MEAN PLT VOLUME 8.8 fl (7.5-11.1); PLATELET COUNT 283 10^3/uL (134-434); RBC 4.23 M/mm3 (4.00-5.60); RDW 15.3 % (11.9-15.9); WHITE BLOOD COUNT 7.5 K/mm3 (4.0-10.0)
[2023-05-05 09:34] LABS: ALBUMIN 3.5 g/dl (3.4-5.0)
[2023-05-05 09:35] LABS: CALCIUM 8.6 mg/dL (8.5-10.1)
[2023-05-05 09:36] LABS: BLOOD UREA NITROGEN 17.8 mg/dL (7-18)
[2023-05-05 09:37] LABS: CREATININE 1.2 mg/dL (0.55-1.3)
[2023-05-05 09:39] LABS: BILIRUBIN,TOTAL 0.2 mg/dL (0.2-1); TOT PROT 6.8 g/dl (6.4-8.2)
[2023-05-05] MEDS: ARIPiprazole 10 MG TABLET PO SCH (10:20)
[2023-05-05] MEDS: PRENATAL VITAMINS W/ FOLIC ACID TABLET (FP) PO SCH (10:20)
[2023-05-05] MEDS: APIXABAN 5 MG TABLET PO SCH ×2 (10:20→22:30)
[2023-05-05] MEDS: amLODIPine BESYLATE 10 MG TABLET (FP) PO SCH (10:21)
[2023-05-05] MEDS: BACITRACIN 0.9 GM PACKET TP SCH ×2 (10:22→23:24)
[2023-05-05] MEDS: SULFAMETHOXAZOLE/TRIMETHOPRIM 800MG/160MG D.S. TABLET PO SCH ×2 (10:35→22:30)
[2023-05-05] MEDS ORDERED: chlordiazePOXIDE HCL 10 MG CAPSULE PO PRN (10:42)
[2023-05-05] MEDS: chlordiazePOXIDE HCL 25 MG CAPSULE PO SCH ×3 (11:05→22:30)
[2023-05-05] MEDS ORDERED: FLU VACCINE (FLULAVAL) PF 60 MCG/0.5 ML SYRINGE 2023-2024 IM ONE (12:00)
[2023-05-05] MEDS: ACETAMINOPHEN 325 MG TABLET (FP) PO PRN (17:00)
[2023-05-05] MEDS: MIRTAZAPINE 15 MG TABLET (FP) PO SCH (22:30)
[2023-05-05] MEDS: THIAMINE HCL 100 MG TABLET (FP) PO SCH (22:30)
[2023-05-05] MEDS: ATORVASTATIN CA 10 MG TABLET (FP) PO SCH (22:30)
[2023-05-05] MEDS: MELATONIN 5 MG TABLETS PO SCH (22:33)
[2023-05-06] MEDS: chlordiazePOXIDE HCL 25 MG CAPSULE PO SCH ×4 (05:28→22:32)
[2023-05-06] MEDS: BACITRACIN 0.9 GM PACKET TP SCH ×2 (10:20→22:31)
[2023-05-06] MEDS: PRENATAL VITAMINS W/ FOLIC ACID TABLET (FP) PO SCH (10:20)
[2023-05-06] MEDS: SULFAMETHOXAZOLE/TRIMETHOPRIM 800MG/160MG D.S. TABLET PO SCH ×2 (10:20→22:32)
[2023-05-06] MEDS: ARIPiprazole 10 MG TABLET PO SCH (10:20)
[2023-05-06] MEDS: amLODIPine BESYLATE 10 MG TABLET (FP) PO SCH (10:20)
[2023-05-06] MEDS: APIXABAN 5 MG TABLET PO SCH ×2 (10:24→22:32)
[2023-05-06] MEDS: LISINOPRIL 20 MG TABLET PO SCH (14:54)
[2023-05-06] MEDS: ATORVASTATIN CA 10 MG TABLET (FP) PO SCH (22:31)
[2023-05-06] MEDS: MIRTAZAPINE 15 MG TABLET (FP) PO SCH (22:32)
[2023-05-06] MEDS: THIAMINE HCL 100 MG TABLET (FP) PO SCH (22:32)
[2023-05-06] MEDS: MELATONIN 5 MG TABLETS PO SCH (22:33)
[2023-05-06] MEDS: ACETAMINOPHEN 325 MG TABLET (FP) PO PRN (22:35)
[2023-05-07] MEDS: chlordiazePOXIDE HCL 10 MG CAPSULE PO SCH ×4 (05:27→22:07)
[2023-05-07] MEDS: BACITRACIN 0.9 GM PACKET TP SCH ×2 (10:19→22:07)
[2023-05-07] MEDS: PRENATAL VITAMINS W/ FOLIC ACID TABLET (FP) PO SCH (10:19)
[2023-05-07] MEDS: LISINOPRIL 20 MG TABLET PO SCH (10:20)
[2023-05-07] MEDS: APIXABAN 5 MG TABLET PO SCH ×2 (10:20→22:07)
[2023-05-07] MEDS: SULFAMETHOXAZOLE/TRIMETHOPRIM 800MG/160MG D.S. TABLET PO SCH ×2 (10:20→22:07)
[2023-05-07] MEDS: amLODIPine BESYLATE 10 MG TABLET (FP) PO SCH (10:21)
[2023-05-07] MEDS: ARIPiprazole 10 MG TABLET PO SCH (10:21)
[2023-05-07 21:07] VITALS: BP 127/89; PULSE 74; RESP 17; TEMP 97.3
[2023-05-07] MEDS: ATORVASTATIN CA 10 MG TABLET (FP) PO SCH (22:07)
[2023-05-07] MEDS: THIAMINE HCL 100 MG TABLET (FP) PO SCH (22:07)
[2023-05-07] MEDS: MIRTAZAPINE 15 MG TABLET (FP) PO SCH (22:07)
[2023-05-07] MEDS: MELATONIN 5 MG TABLETS PO SCH (22:08)
[2023-05-08] MEDS ORDERED: chlordiazePOXIDE HCL 10 MG CAPSULE PO SCH (05:00)
[2023-05-09] MEDS ORDERED: chlordiazePOXIDE HCL 10 MG CAPSULE PO ONE (05:00)
== END 2023-05-07 23:21 | disposition left against medical advice (07) | DRG 770 ==
LOC: YASAS 06:23 → Y6N 09:24
PROVIDERS: ADMIT Allergy & Immunology; ATTEND Surgery
PROC: HZ2ZZZZ Detoxification Services for Substance Abuse Treatment (ICD-10-PCS; principal; 2023-05-04)
DX: F11.23 Opioid dependence with withdrawal (principal); F10.230 Alcohol dependence with withdrawal, uncomplicated; F13.20 Sedative, hypnotic or anxiolytic dependence, uncomplicated; F14.20 Cocaine dependence, uncomplicated; F17.210 Nicotine dependence, cigarettes, uncomplicated; F25.0 Schizoaffective disorder, bipolar type; F19.282 Other psychoactive substance dependence with psychoactive substance-induced sleep disorder; F19.24 Other psychoactive substance dependence with psychoactive substance-induced mood disorder; G47.00 Insomnia, unspecified; I10 Essential (primary) hypertension; I48.91 Unspecified atrial fibrillation; K21.9 Gastro-esophageal reflux disease without esophagitis; J45.30 Mild persistent asthma, uncomplicated; G62.9 Polyneuropathy, unspecified; E11.9 Type 2 diabetes mellitus without complications; Z79.01 Long term (current) use of anticoagulants
CPT/HCPCS: 36415; 80053; 80307; 82962; 83036; 85027; 86780; 87389; 87635; 93005; 93010

== ENCOUNTER 2023-09-20 12:08 | Inpatient (IN) | payer OTHER ==
[2023-09-20 12:36] VITALS: BMI 39.9
[2023-09-20] MEDS ORDERED: ONDANSETRON *ODT* 4 MG TABLET SL PRN (13:29)
[2023-09-20] MEDS ORDERED: NICOTINE POLACRILEX 2 MG GUM BUC PRN (13:29)
[2023-09-20] MEDS ORDERED: MAG HYDROX/AL HYDROX/SIMETH 30 ML UNIT-DOSE CUP PO PRN (13:29)
[2023-09-20] MEDS ORDERED: DICYCLOMINE HCL 10 MG CAPSULE PO PRN (13:29)
[2023-09-20] MEDS ORDERED: NALOXONE HCL 0.4 MG/ML VIAL IM PRN (13:29)
[2023-09-20] MEDS ORDERED: POLYETHYLENE GLYCOL (HEALTHYLAX) 3350 17 GM PACKET PO PRN (13:29)
[2023-09-20] MEDS ORDERED: BENZONATATE 200 MG CAPSULE PO PRN (13:29)
[2023-09-20] MEDS ORDERED: MAGNESIUM HYDROX 2400MG/30ML ORAL SUSPENSION 30 ML CUP PO PRN (13:29)
[2023-09-20] MEDS ORDERED: guaiFENesin 600 MG TABLET.ER (FP) PO PRN (13:29)
[2023-09-20] MEDS ORDERED: LOPERAMIDE HCL 2 MG CAPSULE PO PRN (13:29)
[2023-09-20] MEDS ORDERED: BISMUTH SUBSALICYLATE 524 MG/30 ML PO PRN (13:29)
[2023-09-20] MEDS ORDERED: NALOXONE HCL (KLOXXADO) 8 MG SPRAY NS PRN (13:29)
[2023-09-20] MEDS ORDERED: BENZOCAINE/MENTHOL (CHLORASEPTIC ) LOZENGE MM PRN (13:29)
[2023-09-20] MEDS ORDERED: ACETAMINOPHEN 325 MG TABLET (FP) PO PRN (13:29)
[2023-09-20] MEDS: diazePAM 5 MG TABLET PO SCH (17:23)
[2023-09-20] MEDS: IBUPROFEN 600 MG TABLET (FP) PO PRN (17:24)
[2023-09-20] MEDS: DIVALPROEX SODIUM 250 MG TABLET E.C. PO SCH (22:32)
[2023-09-20] MEDS: GABAPENTIN 300 MG CAPSULE PO SCH (22:32)
[2023-09-20] MEDS: ATORVASTATIN CA 10 MG TABLET (FP) PO SCH (22:32)
[2023-09-20] MEDS: MIRTAZAPINE 15 MG TABLET (FP) PO SCH (22:32)
[2023-09-20] MEDS: THIAMINE HCL 100 MG TABLET (FP) PO SCH (22:32)
[2023-09-20] MEDS: MELATONIN 5 MG TABLETS PO SCH (22:34)
[2023-09-20] MEDS: METHOCARBAMOL 500 MG TABLET PO PRN (22:34)
[2023-09-21] MEDS ORDERED: amLODIPine BESYLATE 10 MG TABLET (FP) PO SCH (10:00)
[2023-09-21] MEDS: ASPIRIN 81 MG CHEWABLE TABLETS PO SCH (10:35)
[2023-09-21] MEDS: PRENATAL VITAMINS W/ FOLIC ACID TABLET (FP) PO SCH (10:35)
[2023-09-21] MEDS: amLODIPine BESYLATE 10 MG TABLET (FP) PO SCH (10:35)
[2023-09-21] MEDS: NICOTINE 7 MG/24 HOURS TOPICAL PATCH TD SCH (10:35)
[2023-09-21] MEDS: LISINOPRIL 20 MG TABLET PO SCH (10:35)
[2023-09-21] MEDS: hydrOXYzine PAMOATE 25 MG CAPSULE (FP) PO PRN (10:37)
[2023-09-21] MEDS: ARIPiprazole 10 MG TABLET PO SCH (11:46)
[2023-09-21 12:19] LABS: HEMOGLOBIN 12.7 GM/dL (11.7-16.9); MCH 29.9 pg (25.7-33.7); MCHC 32.5 g/dl (32.0-35.9); PLATELET COUNT 276 10^3/uL (134-434); RBC 4.24 M/mm3 (4.00-5.60); RDW 15.2 % (11.9-15.9)
[2023-09-21 12:46] LABS: POTASSIUM 4.7 mmol/L (3.5-5.1)
[2023-09-21 12:50] LABS: CALCIUM 9.3 mg/dL (8.5-10.1)
[2023-09-21 12:51] LABS: ALBUMIN 3.7 g/dl (3.4-5.0); BLOOD UREA NITROGEN 20.6 mg/dL (7-18)
[2023-09-21 12:54] LABS: CREATININE 1.7 mg/dL (0.55-1.3)
[2023-09-21 12:55] LABS: BILIRUBIN,TOTAL 0.3 mg/dL (0.2-1); TOT PROT 7.2 g/dl (6.4-8.2)
[2023-09-22] MEDS: diazePAM 5 MG TABLET PO SCH (05:52)
[2023-09-22] MEDS: diazePAM 5 MG TABLET PO PRN (10:37)
[2023-09-22] MEDS: LACTULOSE 20 GM/30 ML UDC (FOR ORAL USE ONLY) PO SCH (14:06)
[2023-09-22] MEDS: HYDROCORTISONE ACETATE 25 MG/SUPP.RECT RC ONE (22:44)
[2023-09-22] MEDS: IBUPROFEN 400 MG TABLET (FP) PO PRN (23:43)
[2023-09-23] MEDS: diazePAM 5 MG TABLET PO SCH (05:45)
[2023-09-23 17:17] VITALS: TEMP 96.8
[2023-09-23 20:52] VITALS: BP 145/82; PULSE 82; RESP 16
[2023-09-24] MEDS ORDERED: diazePAM 5 MG TABLET PO ONE (06:00)
== END 2023-09-23 21:37 | disposition left against medical advice (07) | DRG 770 ==
LOC: YASAS 12:08 → Y6N 13:33
PROVIDERS: ADMIT Allergy & Immunology; ATTEND Surgery
PROC: HZ2ZZZZ Detoxification Services for Substance Abuse Treatment (ICD-10-PCS; principal; 2023-09-20)
DX: F10.230 Alcohol dependence with withdrawal, uncomplicated (principal); F13.230 Sedative, hypnotic or anxiolytic dependence with withdrawal, uncomplicated; F11.20 Opioid dependence, uncomplicated; F14.10 Cocaine abuse, uncomplicated; F17.210 Nicotine dependence, cigarettes, uncomplicated; F19.282 Other psychoactive substance dependence with psychoactive substance-induced sleep disorder; F19.280 Other psychoactive substance dependence with psychoactive substance-induced anxiety disorder; F19.24 Other psychoactive substance dependence with psychoactive substance-induced mood disorder; F25.0 Schizoaffective disorder, bipolar type; E72.20 Disorder of urea cycle metabolism, unspecified; E11.9 Type 2 diabetes mellitus without complications; G62.9 Polyneuropathy, unspecified; I10 Essential (primary) hypertension; J45.30 Mild persistent asthma, uncomplicated; K21.9 Gastro-esophageal reflux disease without esophagitis; M54.50 Low back pain, unspecified; G89.29 Other chronic pain
CPT/HCPCS: 36415; 80053; 80305; 80307; 82140; 83036; 85027; 86780; 93005; 93010